=== PATIENT | female | born 1965 | race African-American/Black ===

== ENCOUNTER 2017-08-28 22:03 | Emergency (ER) | payer BC ==
[~2017-08-28] VITALS: Ht 172.7 cm; Wt 172.4 kg
[~2017-08-28 22:03] MED LIST: ACHD5005 PO; ALBU0.632 IH; AMLO2.5T PO; ASP81CT PO; ASPI-586 PO; BENZ100C18 PO; CITA10TA70 PO; CYAN500L PO; CYCL10TA9 PO; FAMO20TA3 PO; FAMO20TA5 PO; HCT25T PO; HYDR-2890 PO; HYDR-3454 PO; HYDR1TAB PO; MULT1CAP27 PO; NAPR-243 PO; NF-ESOM40C PO; OMEP20CA12 PO; ONDA4TAB8 SL; PANT40TA2 PO; PNT40TEC PO; PRD20T PO; SCR1T1 PO; SUCR1TAB PO; SUCR1TAB36 PO; TRM50T PO; [UNRECOGNIZED DRUG - OTHER]
--- OUTSIDE RECORDS SUMMARY | 2017-08-28 22:09 | XMS REPORT ---
Author Author AVRIL BAILON Organization [employer] Address Unknown Phone Unavailable Care Team Providers Care Fiber Design Engineer Name Role Phone AVRIL BAILON CP Unavailable Allergies No Known Allergies Problems Problem Type Condition Code Onset Dates Condition Status Problem Epigastric pain R10.13 Active Problem Elevated lipase R74.8 Active Problem Essential hypertension, hypertension with unspecified goal I10 Active Medications No Known Medications Results No Known Results Summary Purpose eClinicalWorks Submission
--- OUTSIDE RECORDS SUMMARY | 2017-08-28 22:10 | XMS REPORT ---
Author Author AVRIL BAILON [facility] Address [address] [place] [address] Care Team Providers Care Catering Chef Name Role Phone AVRIL BAILON Unavailable PROBLEMS Type Condition ICD9-CM Code [id number] Code Onset Dates Condition Status SNOMED Code Problem Essential hypertension I10 Active 18330209 Problem Morbid obesity, unspecified obesity type E66.01 Active 296701924 Problem Epigastric pain R10.13 Active 41708847 Problem Elevated lipase R74.8 Active 977965169 Problem Menopausal symptoms N95.1 Active 69809880 Problem Abdominal pain R10.9 Active 25849955 ALLERGIES Unknown Allergies SOCIAL HISTORY No smoking Hx information available PLAN OF CARE VITAL SIGNS MEDICATIONS Medication Instructions Dosage Frequency Start Date End Date Duration Status Levaquin 500 MG Orally Once a day 1 tablet 24h Nov, Nov, 10 day(s) Active RESULTS No Results PROCEDURES No Known procedures IMMUNIZATIONS No Known Immunizations
--- OUTSIDE RECORDS SUMMARY | 2017-08-28 22:10 | XMS REPORT ---
Author Author STEVEN PORTILLO Organization [employer] Address Unknown Phone Unavailable Care Team Providers Care Manufacturing Plant Controller Name Role Phone STEVEN PORTILLO CP Unavailable Allergies, Adverse Reactions, Alerts Substance Reaction Event Type Aleve Info Not Available Drug Allergy Advil Info Not Available Drug Allergy Ativan 0.5 Mg Info Not Available Non Drug Allergy Problems Problem Type Condition Code Onset Dates Condition Status Problem Epigastric pain R10.13 Active Problem Elevated lipase R74.8 Active Problem Essential hypertension, hypertension with unspecified goal I10 Active Assessment Elevated lipase R74.8 Active Assessment Essential hypertension, hypertension with unspecified goal I10 Active Assessment Epigastric pain R10.13 Active Medications Medication Code System Code Instructions Start Date End Date Status Dosage Lisinopril-Hydrochlorothiazide [facility] [address]-72 10-12.5 MG Orally Once a day March 11, 2016 1 tablet Pepcid [facility] [address]-02 20 MG Orally Once a day 1 tablet at bedtime Multivitamin [facility] 73265-[address] May 02, 2014 1 tablet by Oral route 1 time per day Aspir-81 [facility] [address]-18 81 MG Orally Once a day 1 tablet Procedures Procedure Coding System Code Date Office Visit, Est Pt., Level 4 CPT-4 38726 March 11, 2016 Vital Signs Date/Time: March 11, 2016 Temperature 97.4 F Weight 375 lbs Height 68 in BMI 57.01 Index Blood Pressure Diastolic 90 mmHg Blood Pressure Systolic 160 mmHg Cardiac Monitoring Heart Rate 78 bpm Results No Known Results Summary Purpose eClinicalWorks Submission
--- OUTSIDE RECORDS SUMMARY | 2017-08-28 22:10 | XMS REPORT ---
Author Author AVRIL BAILON [facility] Address [address] [place] [address] Care Team Providers Care Wire Coater Name Role Phone AVRIL BAILON Unavailable PROBLEMS Type Condition ICD9-CM Code [id number] Code Onset Dates Condition Status SNOMED Code Problem Abdominal pain R10.9 Active 01647301 Problem Epigastric pain R10.13 Active 97799204 Problem Elevated lipase R74.8 Active 777896862 Assessment Essential hypertension, hypertension with unspecified goal I10 08 Jul, 2016 Active 37196299 ALLERGIES No Known Allergies SOCIAL HISTORY No smoking Hx information available PLAN OF CARE VITAL SIGNS MEDICATIONS Medication Instructions Dosage Frequency Start Date End Date Duration Status Norvasc 2.5 MG Orally Once a day 1 tablet 24h Feb, Active RESULTS No Results PROCEDURES No Known procedures IMMUNIZATIONS No Known Immunizations
--- OUTSIDE RECORDS SUMMARY | 2017-08-28 22:10 | XMS REPORT ---
Author VIRGILIO Ash Organization [employer] Address Unknown Phone Unavailable Care Team Providers Care Lead Loader Name Role Phone VIRGILIO SALGADO CP Unavailable Allergies No Known Allergies Problems Problem Type Condition Code Onset Dates Condition Status Problem Essential hypertension, hypertension with unspecified goal I10 Active Problem Epigastric pain R10.13 Active Problem Abdominal pain R10.9 Active Problem Elevated lipase R74.8 Active Medications Medication Code System Code Instructions Start Date End Date Status Dosage Macrobid [facility] [address]-18 100 MG Orally every 12 hrs Jul 12, 2016Jun 1 capsule with food Results No Known Results Summary Purpose eClinicalWorks Submission
--- OUTSIDE RECORDS SUMMARY | 2017-08-28 22:10 | XMS REPORT ---
Author AVRIL Matthews Organization [employer] Address Unknown Phone Unavailable Care Team Providers Care Orchid Superintendent Name Role Phone AVRIL BAILON CP Unavailable Allergies No Known Allergies Problems Problem Type Condition Code Onset Dates Condition Status Problem Abdominal pain R10.9 Active Problem Essential hypertension, hypertension with unspecified goal I10 Active Problem Menopausal symptoms N95.1 Active Problem Epigastric pain R10.13 Active Problem Elevated lipase R74.8 Active Medications No Known Medications Results No Known Results Summary Purpose eClinicalWorks Submission
--- OUTSIDE RECORDS SUMMARY | 2017-08-28 22:10 | XMS REPORT ---
Author Author AVRIL BAILON Organization [employer] Address Unknown Phone Unavailable Care Team Providers Care Channeling Machine Operator Name Role Phone AVRIL BAILON CP Unavailable Allergies, Adverse Reactions, Alerts Substance Reaction Event Type Aleve Info Not Available Drug Allergy Advil Info Not Available Drug Allergy Ativan 0.5 Mg Info Not Available Non Drug Allergy Problems Problem Type Condition Code Onset Dates Condition Status Problem Essential hypertension, hypertension with unspecified goal I10 Active Problem Epigastric pain R10.13 Active Problem Abdominal pain R10.9 Active Assessment Essential hypertension, hypertension with unspecified goal I10 Active Assessment 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 Problem Elevated lipase R74.8 Active Assessment Abdominal pain R10.9 Active Medications Medication Code System Code Instructions Start Date End Date Status Dosage Omeprazole [facility] [address]-21 20 mg Orally twice a day March 26, 2016 1 capsules Multivitamin [facility] [address] May 02, 2014 1 tablet by Oral route 1 time per day Amoxicillin [facility] [address]-09 500 MG Orally every 12 hrs March 26, 2016 April 09, 2016 2 tablet Pepcid [facility] [address]-77 20 MG Orally Once a day 1 tablet at bedtime Norvasc [facility] [address]-93 2.5 MG Orally Once a day March 26, 2016 1 tablet Aspir-81 [facility] [address]-27 81 MG Orally Once a day 1 tablet Biaxin [facility] [address]-60 500 MG Orally every 12 hrs March 26, 2016March 1 tablet Procedures Procedure Coding System Code Date Office Visit, Est Pt., Level 3 CPT-4 51369 March 26, 2016 IMMUNOASSAY,INFECTIOUS AGENT CPT-4 41929 March 26, 2016 Vital Signs Date/Time: March 26, 2016 Temperature 97.3 F Weight 376.9 lbs Height 68 in BMI 57.30 Index Blood Pressure Diastolic 94 mmHg Blood Pressure Systolic 154 mmHg Cardiac Monitoring Heart Rate 60 bpm Results No Known Results Summary Purpose eClinicalWorks Submission
--- OUTSIDE RECORDS SUMMARY | 2017-08-28 22:10 | XMS REPORT ---
Author Author AVRIL BAILON Organization [employer] Address Unknown Phone Unavailable Care Team Providers Care Mat Inspector Name Role Phone AVRIL BAILON CP Unavailable Allergies No Known Allergies Problems Problem Type Condition Code Onset Dates Condition Status Problem Epigastric pain R10.13 Active Problem Elevated lipase R74.8 Active Problem Essential hypertension, hypertension with unspecified goal I10 Active Medications No Known Medications Results No Known Results Summary Purpose [employer]ClinicalWorks Submission
--- OUTSIDE RECORDS SUMMARY | 2017-08-28 22:10 | XMS REPORT ---
Author DICK Hodge Organization [employer] Address Unknown Phone Unavailable Care Team Providers Care Chain Builder Loom Control Name Role Phone DICK KENT CP Unavailable Allergies, Adverse Reactions, Alerts Substance Reaction Event Type Aleve Info Not Available Drug Allergy Advil Info Not Available Drug Allergy Ativan 0.5 Mg Info Not Available Non Drug Allergy Problems Problem Type Condition ICD-9 Code Onset Dates Condition Status Assessment Dizziness 780.4 Active Assessment Dysuria 788.1 Active Assessment Shoulder pain, right 719.41 Active Problem Unspecified gastritis and gastroduodenitis without mention of hemorrhage 535.50 Active Problem Sprain and strain of lateral collateral ligament of knee 844.0 Active Problem Esophageal reflux 530.81 Active Problem Wheezing 786.07 Active Problem Cough 786.2 Active Problem Abdominal pain, unspecified site 789.00 Active Problem Influenza with other respiratory manifestations 487.1 Active Medications Medication Code System Code Instructions Start Date End Date Status Dosage Bactrim DS [facility] [address]-47 800-160 MG Orally 2 times a day Aug 07, 2015 Aug 10, 2015 1 tablet Procedures Procedure Coding System Code Date Office Visit, Est Pt., Level 4 CPT-4 91196 Aug 07, 2015 ELECTROCARDIOGRAM, TRACING CPT-4 92809 Aug 07, 2015 URINALYSIS, AUTO, W/O SCOPE CPT-4 69726 Aug 07, 2015 Vital Signs Date/Time: Aug 07, 2015 Temperature 97.3 F Weight 375.4 lbs Height 68 in BMI 57.07 Index Blood Pressure Diastolic 90 mmHg Blood Pressure Systolic 144 mmHg Cardiac Monitoring Heart Rate 90 bpm Results Name Result Date Reference Range Unit Abnormality Flag UA W/CULTURE IF INDICATED (IN HOUSE) Summary Purpose eClinicalWorks Submission
--- OUTSIDE RECORDS SUMMARY | 2017-08-28 22:10 | XMS REPORT ---
Author Author AVRIL BAILON Organization [facility] Address [address] [place] [address] Care Team Providers Care Finance Director Name Role Phone AVRIL BAILON Unavailable PROBLEMS Type Condition ICD9-CM Code [id number] Code Onset Dates Condition Status SNOMED Code Problem Essential hypertension I10 Active 68563781 Problem Morbid obesity, unspecified obesity type E66.01 Active 694798503 Problem Epigastric pain R10.13 Active 59760340 Problem Elevated lipase R74.8 Active 587271532 Problem Menopausal symptoms N95.1 Active 67750260 Problem Abdominal pain R10.9 Active 15799856 ALLERGIES Unknown Allergies SOCIAL HISTORY No smoking Hx information available PLAN OF CARE VITAL SIGNS MEDICATIONS Medication Instructions Dosage Frequency Start Date End Date Duration Status Hydrochlorothiazide 25 MG Orally Once a day 1 tablet in the morning 24h Jul, 30 days Active RESULTS No Results PROCEDURES No Known procedures IMMUNIZATIONS No Known Immunizations
--- OUTSIDE RECORDS SUMMARY | 2017-08-28 22:10 | XMS REPORT ---
Author Author AVRIL BAILON Organization [employer] Address Unknown Phone Unavailable Care Team Providers Care Electrician Name Role Phone AVRIL BAILON CP Unavailable Allergies No Known Allergies Problems Problem Type Condition Code Onset Dates Condition Status Problem Epigastric pain R10.13 Active Problem Elevated lipase R74.8 Active Problem Essential hypertension, hypertension with unspecified goal I10 Active Medications No Known Medications Results No Known Results Summary Purpose eClinicalWorks Submission
--- OUTSIDE RECORDS SUMMARY | 2017-08-28 22:10 | XMS REPORT ---
Author Author AVRIL BAILON Organization [facility] Address [address] [place] [address] Care Team Providers Care Client Relationship Manager Name Role Phone AVRIL BAILON Unavailable PROBLEMS Type Condition ICD9-CM Code [id number] Code Onset Dates Condition Status SNOMED Code Problem Abdominal pain R10.9 Active 65332301 Problem Epigastric pain R10.13 Active 17545119 Assessment Screening, lipid Z13.220 Jul, Active 534829336 Assessment Morbid obesity, unspecified obesity type E66.01 Jul, Active 758106942 Problem Elevated lipase R74.8 Active 368366797 Assessment Family history of diabetes mellitus Z83.3 Jul, Active 937843787 ALLERGIES No Known Allergies SOCIAL HISTORY No smoking Hx information available PLAN OF CARE VITAL SIGNS MEDICATIONS No Known Medications RESULTS Name Result Date Reference Range CMP 2016-08-25 Glucose, Serum 86 65-99 BUN 10 6-24 Creatinine, Serum 0.81 0.57-1.00 eGFR If NonAfricn Am 85 >59 eGFR If Africn Am 98 >59 BUN/Creatinine Ratio 12 9-23 Sodium, Serum 141 134-144 Potassium, Serum 4.2 3.5-5.2 Chloride, Serum 103 97-108 Carbon Dioxide, Total 26 18-29 Calcium, Serum 9.1 8.7-10.2 Protein, Total, Serum 7.1 6.0-8.5 Albumin, Serum 3.9 3.5-5.5 Globulin, Total 3.2 1.5-4.5 A/G Ratio 1.2 1.1-2.5 Bilirubin, Total 0.5 0.0-1.2 Alkaline Phosphatase, S 83 39-117 AST (SGOT) 13 0-40 ALT (SGPT) 12 0-32 A1C (IN HOUSE) A1C IN HOUSE 5.8 4.3 - 5.6 % Previous A1c Lot 0620 Exp date INSULIN LEVEL 2016-08-25 Insulin 21.7 2.6-24.9 LIPID PANEL 2016-08-25 Cholesterol, Total 185 100-199 Triglycerides 67 0-149 HDL Cholesterol 63 >39 VLDL Cholesterol Pramod 13 5-40 LDL Cholesterol Calc 109 0-99 PROCEDURES Procedure Date Ordered Related Diagnosis Body Site ASSAY OF INSULIN Aug 25, 2016 LIPID PANEL Aug 25, 2016 GLYCATED HEMOGLOBIN TEST Aug 25, 2016 COMPREHEN METABOLIC PANEL Aug 25, 2016 VENIPUNCT, ROUTINE* Aug 25, 2016 IMMUNIZATIONS No Known Immunizations
--- OUTSIDE RECORDS SUMMARY | 2017-08-28 22:10 | XMS REPORT ---
Author Author AVRIL BAILON Organization [facility] Address [address] [place] [address] Care Team Providers Care Terrazzo Worker Helper Name Role Phone AVRIL BAILON Unavailable PROBLEMS Type Condition ICD9-CM Code [id number] Code Onset Dates Condition Status SNOMED Code Assessment Colon cancer screening Z12.11 Oct, Active 398902124 Assessment Essential hypertension I10 Oct, Active 35163900 Assessment Breast cancer screening Z12.39 Oct, Active 729316589 Problem Essential hypertension I10 Active 59786613 Problem Morbid obesity, unspecified obesity type E66.01 Active 451892216 Problem Epigastric pain R10.13 Active 68928626 Problem Elevated lipase R74.8 Active 166710006 Problem Menopausal symptoms N95.1 Active 60119045 Problem Abdominal pain R10.9 Active 56050706 ALLERGIES Substance Reaction Event Type Date Status Aleve Unknown Drug Allergy Oct, Active Advil Unknown Drug Allergy Oct, Active Ativan 0.5 Mg Unknown Non Drug Allergy Oct, Active SOCIAL HISTORY No smoking Hx information available PLAN OF CARE Activity Details Pending Test Mammogram, Bilateral Screening 4 Weeks,Reason: VITAL SIGNS Height 68 in 2016-10-29 Weight 369.4 lbs 2016-10-29 Heart Rate 72 bpm 2016-10-29 Respiratory Rate 20 2016-10-29 BMI 56.16 kg/m2 2016-10-29 Blood pressure systolic 119 mmHg 2016-10-29 Blood pressure diastolic 81 mmHg 2016-10-29 MEDICATIONS Medication Instructions Dosage Frequency Start Date End Date Duration Status Omeprazole 20 mg Orally twice a day 1 capsules 12h Feb, 30 day( s) Active Multivitamin 1 tablet by Oral route 1 time per day Apr, Active Norvasc 2.5 MG Orally Once a day 1 tablet 24h Feb, Active Aspir-81 81 MG Orally Once a day 1 tablet 24h Active Hydrochlorothiazide 25 MG Orally Once a day in the AM 1 tablet Jul, Active Celexa 20 mg Orally Once a day 1 tablet 24h Aug, 30 days Active Amlodipine Besylate 2.5 MG TAKE ONE TABLET BY MOUTH ONCE DAILY 90 Active RESULTS Name Result Date Reference Range Mammogram, Bilateral Screening 2016-11-12 PROCEDURES Procedure Date Ordered Related Diagnosis Body Site Office Visit, Est Pt., Level 3 Oct 29, 2016 IMMUNIZATIONS No Known Immunizations
--- OUTSIDE RECORDS SUMMARY | 2017-08-28 22:11 | XMS REPORT ---
Author Author AVRIL BAILON Organization [employer] Address Unknown Phone Unavailable Care Team Providers Care Dough Molder Hand Name Role Phone AVRIL BAILON CP Unavailable Allergies No Known Allergies Problems Problem Type Condition Code Onset Dates Condition Status Problem Epigastric pain R10.13 Active Problem Elevated lipase R74.8 Active Problem Essential hypertension, hypertension with unspecified goal I10 Active Medications No Known Medications Results No Known Results Summary Purpose eClinicalWorks Submission
--- OUTSIDE RECORDS SUMMARY | 2017-08-28 22:11 | XMS REPORT ---
Author AVRIL Matthews Organization [employer] Address Unknown Phone Unavailable Care Team Providers Care Awning Hanger Helper Name Role Phone AVRIL BAILON CP Unavailable Allergies No Known Allergies Problems Problem Type Condition Code Onset Dates Condition Status Problem Abdominal pain R10.9 Active Problem Essential hypertension, hypertension with unspecified goal I10 Active Problem Menopausal symptoms N95.1 Active Assessment Menopausal symptoms N95.1 Active Problem Epigastric pain R10.13 Active Problem Elevated lipase R74.8 Active Medications Medication Code System Code Instructions Start Date End Date Status Dosage Celexa [facility] [address]-31 20 mg Orally Once a day Aug 31, 2016 1 tablet Results No Known Results Summary Purpose eClinicalWorks Submission
--- OUTSIDE RECORDS SUMMARY | 2017-08-28 22:11 | XMS REPORT ---
Author Author AVRIL BAILON Organization [facility] Address [address] [place] [address] Care Team Providers Care Jewelry Sales Coordinator Name Role Phone AVRIL BAILON Unavailable PROBLEMS Type Condition ICD9-CM Code [id number] Code Onset Dates Condition Status SNOMED Code Problem Essential hypertension I10 Active 60315883 Problem Morbid obesity, unspecified obesity type E66.01 Active 996149607 Problem Epigastric pain R10.13 Active 90300221 Problem Elevated lipase R74.8 Active 845223998 Problem Menopausal symptoms N95.1 Active 95886833 Problem Abdominal pain R10.9 Active 04968098 ALLERGIES Substance Reaction Event Type Date Status Aleve Unknown Drug Allergy Nov, Active Advil Unknown Drug Allergy Nov, Active Ativan 0.5 Mg Unknown Non Drug Allergy Nov, Active SOCIAL HISTORY No smoking Hx information available PLAN OF CARE Activity Details Follow Up prn Reason: VITAL SIGNS Height 68 in 2016-12-16 Weight 368 lbs 2016-12-16 Temperature 98.0 degrees Fahrenheit 2016-12-16 Heart Rate 70 bpm 2016-12-16 Respiratory Rate 20 2016-12-16 BMI 55.95 kg/m2 2016-12-16 Blood pressure systolic 130 mmHg 2016-12-16 Blood pressure diastolic 80 mmHg 2016-12-16 MEDICATIONS Medication Instructions Dosage Frequency Start Date End Date Duration Status Aspir-81 81 MG Orally Once a day 1 tablet 24h Active Hydrochlorothiazide 25 MG Orally Once a day 1 tablet in the morning 24h Jul, 30 days Active Amlodipine Besylate 2.5 MG TAKE ONE TABLET BY MOUTH ONCE DAILY 90 Active Multivitamin 1 tablet by Oral route 1 time per day Apr, Active Omeprazole 20 mg Orally twice a day 1 capsules 12h Feb, 30 day( s) Active RESULTS No Results PROCEDURES Procedure Date Ordered Related Diagnosis Body Site SPECIMEN HANDLING Dec 16, 2016 Office Visit, Est Pt., Level 4 Dec 16, 2016 IMMUNIZATIONS No Known Immunizations
--- OUTSIDE RECORDS SUMMARY | 2017-08-28 22:11 | XMS REPORT ---
Author Author AVRIL BAILON Organization [employer] Address Unknown Phone Unavailable Care Team Providers Care Spoon Maker Name Role Phone AVRIL BAILON CP Unavailable Allergies No Known Allergies Problems Problem Type Condition Code Onset Dates Condition Status Problem Essential hypertension, hypertension with unspecified goal I10 Active Problem Epigastric pain R10.13 Active Problem Abdominal pain R10.9 Active Problem Elevated lipase R74.8 Active Medications No Known Medications Results No Known Results Summary Purpose eClinicalWorks Submission
--- OUTSIDE RECORDS SUMMARY | 2017-08-28 22:11 | XMS REPORT ---
Author Author VIRGILIO SALGADO Organization [employer] Address Unknown Phone Unavailable Care Team Providers Care Raw Hide Trimmer Name Role Phone VIRGILIO SALGADO CP Unavailable Allergies, Adverse Reactions, Alerts Substance Reaction Event Type Aleve Info Not Available Drug Allergy Advil Info Not Available Drug Allergy Ativan 0.5 Mg Info Not Available Non Drug Allergy Problems Problem Type Condition Code Onset Dates Condition Status Problem Essential hypertension, hypertension with unspecified goal I10 Active Problem Epigastric pain R10.13 Active Problem Abdominal pain R10.9 Active Assessment Acute cystitis without hematuria N30.00 Active Problem Elevated lipase R74.8 Active Assessment Dysuria R30.0 Active Medications Medication Code System Code Instructions Start Date End Date Status Dosage Carafate [facility] [address]-77 1 GM/10ML Orally 4 times a day March 30, 2016 10 ml on an empty stomach Norvasc [facility] [address]-79 2.5 MG Orally Once a day March 26, 2016 1 tablet Bactrim DS [facility] [address]-76 800-160 MG Orally Twice a day Jul 09, 2016 Jul 14, 2016 1 tablet Multivitamin [facility] [address]44 May 02, 2014 1 tablet by Oral route 1 time per day Aspir-81 [facility] [address]-92 81 MG Orally Once a day 1 tablet Omeprazole [facility] [address]-99 20 mg Orally twice a day March 26, 2016 1 capsules Procedures Procedure Coding System Code Date Office Visit, Est Pt., Level 3 CPT-4 82582 Jul 09, 2016 URINE CULTURE/COLONY COUNT CPT-4 09769 Jul 09, 2016 URINALYSIS, AUTO, W/O SCOPE CPT-4 84241 Jul 09, 2016 Vital Signs Date/Time: Jul 09, 2016 Cardiac Monitoring Heart Rate 86 bpm Weight 373 lbs Height 68 in BMI 56.71 Index Blood Pressure Diastolic 90 mmHg Blood Pressure Systolic 130 mmHg Results No Known Results Summary Purpose eClinicalWorks Submission
--- OUTSIDE RECORDS SUMMARY | 2017-08-28 22:11 | XMS REPORT ---
Author AVRIL Matthews Organization [employer] Address Unknown Phone Unavailable Care Team Providers Care Interchange Agent Name Role Phone AVRIL BAILON CP Unavailable Allergies, Adverse Reactions, Alerts Substance Reaction Event Type Aleve Info Not Available Drug Allergy Advil Info Not Available Drug Allergy Ativan 0.5 Mg Info Not Available Non Drug Allergy Problems Problem Type Condition Code Onset Dates Condition Status Assessment Screening, lipid Z13.220 Active Assessment Family history of diabetes mellitus Z83.3 Active Problem Essential hypertension, hypertension with unspecified goal I10 Active Problem Epigastric pain R10.13 Active Problem Abdominal pain R10.9 Active Assessment Sleep apnea, unspecified type G47.30 Active Assessment Morbid obesity, unspecified obesity type E66.01 Active Problem Elevated lipase R74.8 Active Assessment Essential hypertension I10 Active Medications Medication Code System Code Instructions Start Date End Date Status Dosage Multivitamin [facility][NOTE 3] [address] May 02, 2014 1 tablet by Oral route 1 time per day Omeprazole [facility][NOTE 3] [address]-34 20 mg Orally twice a day March 26, 2016 1 capsules Carafate [facility][NOTE 3] [address]-52 1 GM/10ML Orally 4 times a day March 30, 2016 10 ml on an empty stomach Norvasc [facility][NOTE 3] [address]-28 2.5 MG Orally Once a day March 26, 2016 1 tablet Hydrochlorothiazide [facility][NOTE 3] [address]-34 25 MG Orally Once a day in the AM Aug 24, 2016 1 tablet Aspir-81 [facility][NOTE 3] [address]-58 81 MG Orally Once a day 1 tablet Procedures Procedure Coding System Code Date Office Visit, Est Pt., Level 3 CPT-4 74411 Aug 24, 2016 Vital Signs Date/Time: Aug 24, 2016 Cardiac Monitoring Heart Rate 84 bpm Weight 374 lbs Height 68 in BMI 56.86 Index Blood Pressure Diastolic 102 mmHg Blood Pressure Systolic 150 mmHg Results No Known Results Summary Purpose eClinicalWorks Submission
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
[2017-08-28] MEDS ORDERED: OMEP20CA12 (22:45)
[2017-08-28] MEDS ORDERED: FURO20TA4 (22:45)
--- NOTE | 2017-08-28 22:52 | ED Cough/URI ---
General Chief Complaint: Cough/Cold/Flu Symptoms Stated Complaint: DIZZY,TASTED BLOOD DOWN THROAT WHEN BLOWING NOSE Nursing Triage Note: PT REPORTS RESPIRATORY CONGESTION, COUGH OF 1 WEEK NOT IMPROVING. PT HAS HX HTN AND DOES NOT USE DECONGESTIONS. PT DID NOT TAKE HER BP MED TODAY. History of Present Illness Time seen by provider: 22:40 Initial Comments Patient complains of cough and postnasal drainage. He started Claritin today. She is on blood pressure medicine, she did not take it this morning as her blood pressure was 120/60 She denies history of allergies. Timing/Duration: week Severity/Quality: dry cough Associated Symptoms: nasal congestion, nasal drainage Allergies and Home Medications Allergies Coded Allergies: ibuprofen (Verified Allergy, Severe, 05/01/16) Home Medications Amlodipine Besylate 2.5 Mg Tablet, 2.5 MG PO DAILY, (Reported) Aspirin 81 Mg Tablet.dr, 81 MG PO DAILY, (Reported) Furosemide 20 Mg Tablet, (Reported) Omeprazole 20 Mg Capsule., (Reported) Constitutional: no symptoms reported, see HPI EENTM: nose congestion Respiratory: see HPI, cough Past Hszhtkx-Oijarm-Fjgsac Hx Patient Social History Alcohol Use: Denies Use Recreational Drug Use: No Smoking Status: Former Smoker Type Used: Cigarettes Former Smoker, Quit: Aug 08, 2007 2nd Hand Smoke Exposure: No Recent Foreign Travel: No Contact w/Someone Who Travel: No Recent Infectious Disease Expo: No Recent Hopitalizations: No Immunizations Up To Date Tetanus Booster (TDap): More than 5yrs Date of Influenza Vaccine: Aug 29, 2013 Surgeries Surgeries: Gallbladder, Tubal Ligation Respiratory Respiratory Disorders: Pneumonia Cardiovascular Cardiac Disorders: Hypertension 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 System Hx 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 Disorders: No Sexually Transmitted Disease: No [employer] History: Tubal Ligation Gastrointestinal Gastrointestinal Disorders: Gastroesophageal Reflux, Hiatal Hernia, Ulcer Musculoskeletal Musculoskeletal Disorders: Chronic Back Pain Family Medical History Significant Family History: Diabetes, Hypertension Physical Exam Vital Signs Vital Sign - Last 12Hours 08/28/ 22:33 Temp 98.1 Pulse 71 Resp 20 B/P (MAP) 154/104 Pulse Ox 98 O2 Delivery Room Air Capillary Refill : Less Than 3 Seconds General Appearance: WD/WN, no apparent distress Eyes: Bilateral Eye Normal Inspection, Bilateral Eye PERRL, Bilateral Eye EOMI HEENT: PERRL/EOMI, normal ENT inspection, TMs normal, pharynx normal, other ( clear postnasal drainage noted) Neck: non-tender, full range of motion, supple, normal inspection, No lymphadenopathy (R), No lymphadenopathy (L) Respiratory: chest non-tender, lungs clear, normal breath sounds Cardiovascular: normal peripheral pulses, regular rate, rhythm, no murmur Gastrointestinal: normal bowel sounds, non tender, soft Neurologic/Psychiatric: no motor/sensory deficits, alert, normal mood/affect, oriented x 3 Skin: normal color, warm/dry Lymphatic: no adenopathy Progress/Results/Core Measures Results/Orders My Orders Orders - BRAYAN STEPHENS Dexamethasone Pf Injection (Decadron Pf (08/28/17 23:00) Dexamethasone Injection (Decadron Inject (08/28/17 22:55) Medications Given in ED Current Medications Medications Dose Ordered Sig/Ken Route Start Time Stop Time Status Last Admin Dose Admin Dexamethasone Sodium Phosphate 10 mg ONCE ONCE IV 08/28/17 23:00 08/28/17 23:01 DC 08/28/17 23:03 10 MG Vital Signs/I&O Vital Sign - Last 12Hours 08/28/17 08/28/17 22:33 22:33 Temp 98.1 Pulse 71 Resp 20 B/P (MAP) 154/104 Pulse Ox 98 O2 Delivery Room Air Room Air Blood Pressure Mean: 121 Departure Impression Impression: Primary Impression: Allergic rhinitis Qualified Codes: J30.2 - Other seasonal allergic rhinitis Disposition: 01 HOME, SELF-CARE Condition: Stable Departure-Patient Inst. Decision time for Depature: 22:40 Referrals: AVRIL BAILON (PCP/Family) Primary Care Physician Patient Instructions: Cough, Runny Nose, and the Common Cold (DC), Seasonal Allergies (DC) Add. Discharge Instructions: Take blood pressure medicine as prescribed. Benadryl 25-50 milligrams before bedtime. Increase water intake. Vsaf-ocl-fgvuwht Zyrtec or Claritin daily for allergies. Pbea-lur-cetnoyc allergy nasal spray, Flonase or Nasonex as directed on label. Anthony med sinus rinse or Sara pot use 3-4 times daily Follow-up with Avril Bailon APRN if symptoms are not improving in 2-4 days. Tylenol 650 mg every 6 hours as needed for pain or discomfort. Return to emergency department for difficulty breathing, fever greater than 101 , or new problems. All discharge instructions reviewed with patient and/or family. Voiced understanding. BRAYAN STEPHENS Aug 28, 2017 22:52
[2017-08-28 23:03] VITALS: BP 154/104
[2017-08-28] MEDS: DEXAMETHASONE 10 MG/ML (DECADRON) 1 ML VIAL ONE (23:03)
[2017-08-28] MEDS: DEXAMETHASONE PF 10 MG/ML (DECADRON) VIAL IV ONE (23:03)
[2017-08-29] MEDS: DEXAMETHASONE 10 MG/ML (DECADRON) 1 ML VIAL ONE (04:32)
[2017-08-29] MEDS: DEXAMETHASONE PF 10 MG/ML (DECADRON) VIAL IV ONE (04:34)
== END 2017-08-28 23:03 | disposition home or self-care (01) ==
LOC: EDUNIT# 22:03 → ER 22:05
DX: J30.9 Allergic rhinitis, unspecified (principal); K21.9 Gastro-esophageal reflux disease without esophagitis; I10 Essential (primary) hypertension; Z98.51 Tubal ligation status; Z87.01 Personal history of pneumonia (recurrent); Z87.891 Personal history of nicotine dependence; Z79.82 Long term (current) use of aspirin
CPT/HCPCS: 96372; 99284

== ENCOUNTER → 2018-08-25 | Outpatient (REF) ==
[~2018-08-25] MED LIST changes: -AMLO2.5T PO; +AMLO2.5T3 PO; +FURO20TA4; +FURO40TA4 PO; +MULT-1029 PO
--- NOTE | 2018-08-25 15:41 | Diagnostic Imaging Report ---
EXAMINATION: Right shoulder at 12:07 p.m. INDICATION: Injury, shoulder pain. FINDINGS: Three views were obtained. There are no prior shoulder exams available for comparison. There is no fracture, dislocation, or acute bony abnormality evident. There is moderate degenerative disease involving the glenohumeral and acromioclavicular joints. The soft tissues are unremarkable. IMPRESSION: 1. There is no evidence for an acute bony abnormality. 2. If clinical concern regarding an injury to the rotator cuff or labrum exists, then MRI will be recommended for further study. Dictated by: Dictated on workstation # [id number]
== END | disposition home or self-care (01) ==
LOC: RAD 11:30
PROVIDERS: ATTEND Nurse Practitioner Family
CPT/HCPCS: 73030

== ENCOUNTER 2018-10-16 02:14 | Emergency (ER) | payer BC ==
[~2018-10-16] VITALS: Ht 172.7 cm; Wt 158.8 kg
--- OUTSIDE RECORDS SUMMARY | 2018-10-16 02:23 | XMS REPORT ---
Author Author AVRIL BAILON Organization [facility] Address [address] [place] [address] Care Team Providers Care Planograph Operator Name Role Phone AVRIL BAILON Unavailable PROBLEMS Type Condition ICD9-CM Code [id number]-OU Code Onset Dates Condition Status SNOMED Code Problem Epigastric pain R10.13 Active 19233839 Problem Menopausal symptoms N95.1 Active 03846329 Problem Abdominal pain R10.9 Active 18232044 Problem Elevated lipase R74.8 Active 891018082 Problem Gastroesophageal reflux disease without esophagitis K21.9 Active 648228771 Problem Localized edema R60.0 Active 749046366 Problem Morbid obesity, unspecified obesity type E66.01 Active 684296203 Problem Essential hypertension I10 Active 03503660 Problem Acute seasonal allergic rhinitis due to pollen J30.1 Active 20114435 Problem Obesity due to excess calories, unspecified classification, unspecified whether serious comorbidity present E66.09 Active 997529248 ALLERGIES Substance Reaction Event Type Date Status Aleve Unknown Drug Allergy Jun, Active Advil Unknown Drug Allergy Jun, Active Ativan 0.5 Mg Unknown Non Drug Allergy Jun, Active ENCOUNTERS Encounter Location Date Diagnosis [facility] [id number] [place] [address] Jun, [facility] [id number] [place] [address] Jun, [facility] [id number] [place] [address] Jun, [facility] [id number] [place] [address] Jun, Essential hypertension I10 ; Morbid obesity, unspecified obesity type E66.01 ; Gastroesophageal reflux disease without esophagitis K21.9 and BMI 50.0-59.9, adult Z68.43 [place] [id number] [place] [address] May, Essential hypertension I10 and Edema R60.9 [place] [id number] [place] [id number] March, [place] [address] [address] Jan, Yeast vaginitis B37.3 [place] [address] [address] 15 Dec, 2017 Acute non-recurrent maxillary sinusitis J01.00 and Bronchitis J40 [address] [address] 12 Dec, 2017 Viral illness B34.9 and BMI 50.0-59.9, adult Z68.43 [place] [address] [address] Nov, Essential hypertension I10 ; Localized edema R60.0 and Epigastric pain R10.13 [place] [address] [address] Nov, [place] [id number] [place] [address]- [address]37 Oct, Hypokalemia E87.6 [place] [address] [address] Oct, Hypokalemia E87.6 [place] [id number] [place] [address]34- [address]69 Aug, Obesity due to excess calories, unspecified classification, unspecified whether serious comorbidity present E66.09 ; Acute seasonal allergic rhinitis due to pollen J30.1 and Localized edema R60.0 [place] [id number] [place] [address]29- 4[address] Apr, Edema R60.9 [place] [id number] [place] [address]- [address] March, Edema R60.9 and Essential hypertension I10 [place] [address] [address]- [address] Jan, Bronchitis J40 [place] [id number] [place] [address] 80[address]- 67[address] Nov, Routine gynecological examination V72.31 and Cervical cancer screening Z12.4 [place] [id number] [place] [address]24- [address] Nov, Acute upper respiratory infection, unspecified J06.9 and Other viral agents as the cause of diseases classified elsewhere B97.89 [place] [address] [address] Oct, Essential hypertension I10 [address] [address] Oct, Essential hypertension I10 ; Morbid obesity, unspecified obesity type E66.01 ; Breast cancer screening Z12.39 and Colon cancer screening Z12.11 [place] [id number] [place] [address] 36995- 57[address] 17 Aug, 2016 [place] [id number] [place] [address] 57[address]- [address] 29 Jul, 2016 Menopausal symptoms N95.1 [place] [id number] [place] [address] 30869- 0723 27 Jul, 2016 Family history of diabetes mellitus Z83.3 ; Screening, lipid Z13.220 and Morbid obesity, unspecified obesity type E66.01 [place] [id number] [place] [address] 6[address]10- [address] 26 Jul, 2016 Essential hypertension I10 ; Sleep apnea, unspecified type G47.30 ; Morbid obesity, unspecified obesity type E66.01 ; Screening, lipid Z13.220 and Family history of diabetes mellitus Z83.3 [place] [id number] [place] [address] 9[address]61- [address]33 08 Jul, 2016 Essential hypertension, hypertension with unspecified goal I10 [facility] [place] [id number] [place] [address] 14 Jun, 2016 [facility] [place] [id number] [place] [address]33 -[address] 11 Jun, 2016 Dysuria R30.0 and Acute cystitis without hematuria N30.00 [place] [id number] [place] [address] 11840- 0880 Jun, [place] [id number] [place] [address] 16023- [address] March, Abdominal pain R10.9 [place] [id number] [place] [address]20- 6230 28 Feb, 2016 Abdominal pain R10.9 ; Essential hypertension, hypertension with unspecified goal I10 and Lipoma D17.9 [facility] [place] [id number] [place] [address] Feb, [place] [id number] [place] [address] 39140- 5281 Feb, [place] [id number] [place] [address] 82859- 8879 Feb, [place] [id number] [place] [address] 02099- 5887 Feb, [place] [id number] [place] [address] 40177- 2152 13 Feb, 2016 Essential hypertension, hypertension with unspecified goal I10 ; Epigastric pain R10.13 and Elevated lipase R74.8 [place] [id number] [place] [address] 90781- 0943 09 Jul, 2015 Dysuria 788.1 ; Shoulder pain, right 719.41 and Dizziness 780.4 [place] [id number] [place] [address] 68888- 5512 14 Feb, 2015 [facility] [place] [facility] [address] [id number] [place] [address] 13 Feb, 2015 [facility] [place] [facility] [address] [id number] [place] [address] Nov, [facility] [place] [facility] [address] [id number] [place] [address] Nov, [facility] [place] [facility] [address] [id number] [place] [address]- 267[address] Jul, [facility] [address] [id number] [place] [address]- 6[address] Jul, [facility] [place] [facility] [address] [id number] [place] [address]- [address] May, [facility] [address] [id number] [place] [address]- [address] May, [facility] [address] [id number] [place] [address]- 239[address] Apr, [facility] [place] [facility] [address] [id number] [place] [address]- 9991 Apr, [facility] [place] [facility] [address] [id number] [place] [address]- 1627 Feb, [facility] [place] [facility] [address] [id number] [place] [address]- [address] Feb, [facility] [place] [facility] [address] [id number] [place] [address]- 9867 Nov, [facility] [place] [facility] [address] [id number] [place] [address]- 8704 Oct, [facility] [place] [facility] [address] [id number] [place] [address]- 0072 Oct, [facility] [place] [facility] [address] [id number] [place] [address]- [address] Oct, [facility] [place] [facility] [address] [id number] [place] [address] Oct, [facility] [address] [id number] [place] [address] Oct, [facility] [place] [facility] [address] [id number] [place] [address]- 4311 Oct, [facility] [place] [facility] [address] [id number] [place] [address]- 5066 Sep, [facility] [place] [facility] [address] [id number] [place] [address]- [address] Sep, [facility] [place] [facility] [address] [id number] [place] [address] Sep, [facility] [place] [facility] [address] [id number] [place] [address]- 0734 Sep, [facility] [place] [facility] [address] [id number] [place] [address]- 7322 Sep, [facility] [place] [facility] [address] [id number] [place] [address]- 3331 Feb, [facility] [place] [facility] [address] [id number] [place] [address]- 0540 Oct, [facility] [place] [facility] [address] [id number] [place] [address]- 0450 Oct, [facility] [place] [facility] [address] [id number] [place] [address]- [address] Aug, [facility] [place] [facility] [address] [id number] [place] [address]- 94[address] May, [facility] [place] [facility] [address] [id number] [place] [address]- 9945 March, [facility] [place] [facility] [address] [id number] [place] [address]- 4951 March, [facility] [place] [facility] [address] [id number] [place] [address]- 2795 Dec, [facility] [place] [facility] [address] [facility] [id number] [place] [address]- [address] Apr, [facility] [address] [facility] [id number] [place] [address]- [address] Dec, IMMUNIZATIONS No Known Immunizations SOCIAL HISTORY Never Assessed REASON FOR VISIT VC f/u-MATHEW steiner PLAN OF CARE Activity Details Follow Up prn Reason: VITAL SIGNS Height 68 in 2018-07-11 Weight 380.7 lbs 2018-07-11 Temperature 97.8 degrees Fahrenheit 2018-07-11 Heart Rate 91 bpm 2018-07-11 Respiratory Rate 20 2018-07-11 BMI 57.88 kg/m2 2018-07-11 Blood pressure systolic 126 mmHg 2018-07-11 Blood pressure diastolic 76 mmHg 2018-07-11 MEDICATIONS Medication Instructions Dosage Frequency Start Date End Date Duration Status Lasix 20 MG Orally Once a day 1 tablet 24h Active Albuterol Sulfate HFA 108 (90 Base) MCG/ACT Inhalation every 6 hrs 2 puffs 6h Dec, Not-Taking Victoza 18 MG/3ML Subcutaneous 0.6mg daily X 7 then 1.2mg daily X7 as directed Jun, Active Omeprazole 20 mg Orally 2 times a day 1 capsules 12h 90 days Active Aspir-81 81 MG Orally Once a day 1 tablet 24h Active Multivitamin 1 tablet by Oral route 1 time per day Apr, Active RESULTS No Results PROCEDURES No Known procedures INSTRUCTIONS MEDICATIONS ADMINISTERED No Known Medications MEDICAL (GENERAL) HISTORY Type Description Date Medical History Hypertension Medical History Heartburn Surgical History gallbladder Surgical History tubal ligation Surgical History Heart Cath Surgical History EGD Surgical History cyst removal from forehead Hospitalization History Surgery(s) only Hospitalization History ER [facility] for abdominal pain 03/14 Hospitalization History hypertention 07/05/2018
--- OUTSIDE RECORDS SUMMARY | 2018-10-16 02:24 | XMS REPORT ---
Author Author AVRIL BAILON Organization [facility] Address [address] [place] [address] Care Team Providers Care Hooking Machine Operator Name Role Phone AVRIL BAILON Unavailable PROBLEMS Type Condition ICD9-CM Code BOB32-KT Code Onset Dates Condition Status SNOMED Code Problem Epigastric pain R10.13 Active 89254406 Problem Menopausal symptoms N95.1 Active 76123308 Problem Abdominal pain R10.9 Active 67910866 Problem Elevated lipase R74.8 Active 633297989 Problem Gastroesophageal reflux disease without esophagitis K21.9 Active 268654676 Problem Localized edema R60.0 Active 345658578 Problem Morbid obesity, unspecified obesity type E66.01 Active 045187289 Problem Essential hypertension I10 Active 47351256 Problem Acute seasonal allergic rhinitis due to pollen J30.1 Active 38872803 Problem Obesity due to excess calories, unspecified classification, unspecified whether serious comorbidity present E66.09 Active 374335888 ALLERGIES No Information ENCOUNTERS Encounter Location Date Diagnosis [place] [id number] [place] [address] 96607- 6269 Jun, [place] [id number] [place] [address] 02133- 8155 Jun, [place] [id number] [place] [address] 47547- 5600 Jun, [place] [id number] [place] [address] 65730- 8547 Jun, Essential hypertension I10 ; Morbid obesity, unspecified obesity type E66.01 ; Gastroesophageal reflux disease without esophagitis K21.9 and BMI 50.0-59.9, adult Z68.43 [place] [id number] [place] [address] 37703- 8326 May, Essential hypertension I10 and Edema R60.9 [place] [id number] [place] [address] 43489- 4547 March, [place] [address] 28959- 5491 Jan, Yeast vaginitis B37.[address] 82320- 6548 15 Dec, 2017 Acute non-recurrent maxillary sinusitis J01.00 and Bronchitis J40 [address] 51918- 2021 Dec, Viral illness B34.9 and BMI 50.0-59.9, adult Z68.[address] 21830- 6999 Nov, Essential hypertension I10 ; Localized edema R60.0 and Epigastric pain R10.13 [place] [address] 50199- 6818 Nov, [address] 52023- 4493 Oct, Hypokalemia E87.[address] 06581- 0670 Oct, Hypokalemia E87.[address] 42119- 3891 Aug, Obesity due to excess calories, unspecified classification, unspecified whether serious comorbidity present E66.09 ; Acute seasonal allergic rhinitis due to pollen J30.1 and Localized edema R60.[address] 50694- 6213 Apr, Edema R60.9 [place] [address] 71781- 6111 March, Edema R60.9 and Essential hypertension I10 [id number] [place] [address] 15202- 0427 Jan, Bronchitis J40 [place] [id number] [place] [address] 08401- 1047 18 Nov, 2016 Routine gynecological examination V72.31 and Cervical cancer screening Z12.4 [place] [id number] [place] [address] 12804- 5035 03 Nov, 2016 Acute upper respiratory infection, unspecified J06.9 and Other viral agents as the cause of diseases classified elsewhere B97.89 [place] [id number] [place] [address] 35474- 2845 28 Oct, 2016 Essential hypertension I10 [place] [id number] [place] [address] 25199- 3766 Oct, Essential hypertension I10 ; Morbid obesity, unspecified obesity type E66.01 ; Breast cancer screening Z12.39 and Colon cancer screening Z12.11 [place] [id number] [place] [address] 44981- 8472 17 Aug, 2016 [place] [id number] [place] [address] 63209- 3301 29 Jul, 2016 Menopausal symptoms N95.1 [place] [id number] [place] [address] 98049- 3608 27 Jul, 2016 Family history of diabetes mellitus Z83.3 ; Screening, lipid Z13.220 and Morbid obesity, unspecified obesity type E66.01 [place] [id number] [place] [address] 92556- 9686 26 Jul, 2016 Essential hypertension I10 ; Sleep apnea, unspecified type G47.30 ; Morbid obesity, unspecified obesity type E66.01 ; Screening, lipid Z13.220 and Family history of diabetes mellitus Z83.3 [place] [id number] [place] [address] 52619- 1737 08 Jul, 2016 Essential hypertension, hypertension with unspecified goal I10 [facility] WALK IN [facility] [id number] [place] [address] 18847 -6925 14 Jun, 2016 [facility] [id number] [place] [address] 82065 -8623 Jun, Dysuria R30.0 and Acute cystitis without hematuria N30.00 [facility] [id number] [place] [address] 37951- 5537 Jun, [facility] [address] 58647- 7624 March, Abdominal pain R10.9 [facility] [id number] [place] [address] 51946- 8256 Feb, Abdominal pain R10.9 ; Essential hypertension, hypertension with unspecified goal I10 and Lipoma D17.9 [facility] WALK IN [facility] [id number] [place] [address] 44018 -1817 Feb, [facility] [id number] [place] [address] 64475- 0486 Feb, [facility] [id number] [place] [address] 64885- 3991 Feb, [place] [id number] [place] [address] 37468- 6963 Feb, [facility] [id number] [place] [address] 22940- 7702 13 Feb, 2016 Essential hypertension, hypertension with unspecified goal I10 ; Epigastric pain R10.13 and Elevated lipase R74.8 [facility] [id number] [place] [address] 37553- 1506 09 Jul, 2015 Dysuria 788.1 ; Shoulder pain, right 719.41 and Dizziness 780.4 [facility] [id number] [place] [address] 84591- 4353 14 Feb, 2015 [facility] [id number] [place] [address] 07891- 3834 13 Feb, 2015 [facility] [address] [facility] [id number] [place] [address]- 9054 Nov, [facility] [address] [id number] [place] [address]- 8642 Nov, [facility] [place] [facility] [address] [id number] [place] [address]- 2490 Jul, [facility] [place] [facility] [address] [id number] [place] [address]- 8608 Jul, [facility] [place] [facility] [address] [id number] [place] [address]- 6624 May, [facility] [place] [facility] [address] [id number] [place] [address]- 1095 May, [facility] [place] [facility] [address] [id number] [place] [address]- 6016 Apr, [facility] [place] [facility] [address] [id number] [place] [address]- 8467 Apr, [facility] [address] [id number] [place] [address]- 0489 Feb, [facility] [place] [facility] [address] [id number] [place] [address]- 3396 Feb, [facility] [address] [id number] [place] [address]- 1850 Nov, [facility] [place] [facility] [address] [id number] [place] [address]- 4942 Oct, [facility] [place] [facility] [address] [id number] [place] [address]- 3659 Oct, [facility] [place] [facility] [address] [id number] [place] [address]- 7306 Oct, [facility] [place] [facility] [address] [id number] [place] [address]- 2546 Oct, [facility] [place] [facility] [address] [id number] [place] [address]- 6276 Oct, [facility] [address] [id number] [place] [address]- 0409 Oct, [facility] [place] [facility] [address] [id number] [place] [address]- 7595 Sep, [facility] [place] [facility] [address] [id number] [place] [address]- 4790 Sep, [facility] [place] [facility] [address] [id number] [place] [address]- 0311 Sep, [facility] [place] [facility] [address] [id number] [place] [address]- 9492 Sep, [facility] [place] [facility] [address] [id number] [place] [address]- 8230 Sep, [facility] [place] [facility] [address] [id number] [place] [address]- 1837 Feb, [facility] [place] [facility] [address] [id number] [place] [address]- 5638 Oct, [facility] [place] [facility] [address] [id number] [place] [address]- 4053 Oct, [facility] [place] [facility] [address] [facility] [id number], [place] [address]- 7838 Aug, [facility] [place] [facility] [address] [id number], [place] [address]- 0186 May, [facility] [place] [facility] [address] [id number], [place] [address]- 6158 March, [facility] [place] [facility] [address] [id number] [place] [address]- 2546 March, [facility] [place] [facility] [address] [id number], [place] [address]- 1766 Dec, [facility] [place] [facility] [address] [id number] [place] [address]- 2546 Apr, [facility] [place] [facility] [address] [facility] [id number] [place] [address] 6940 10 Dec, 2010 IMMUNIZATIONS No Known Immunizations SOCIAL HISTORY Never Assessed REASON FOR VISIT Requests return call PLAN OF CARE VITAL SIGNS MEDICATIONS Unknown Medications RESULTS No Results PROCEDURES No Known procedures [...]
--- OUTSIDE RECORDS SUMMARY | 2018-10-16 02:24 | XMS REPORT ---
Author Author AVRIL BAILON Organization [facility] Address [address] [place] [address] Care Team Providers Care B2B Sales Executive Name Role Phone AVRIL BAILON Unavailable PROBLEMS Type Condition ICD9-CM Code ZOA76-IB Code Onset Dates Condition Status SNOMED Code Problem Epigastric pain R10.13 Active 63174014 Problem Menopausal symptoms N95.1 Active 56471594 Problem Abdominal pain R10.9 Active 92144390 Problem Elevated lipase R74.8 Active 362931440 Problem Gastroesophageal reflux disease without esophagitis K21.9 Active 774442776 Problem Localized edema R60.0 Active 720406192 Problem Morbid obesity, unspecified obesity type E66.01 Active 538023100 Problem Essential hypertension I10 Active 22222443 Problem Acute seasonal allergic rhinitis due to pollen J30.1 Active 25697815 Problem Obesity due to excess calories, unspecified classification, unspecified whether serious comorbidity present E66.09 Active 312101034 ALLERGIES No Information ENCOUNTERS Encounter Location Date Diagnosis [place] [id number] [place] [address] 57378- 3426 Jun, [place] [id number] [place] [address] 68174- 3578 Jun, [place] [id number] [place] [address] 78785- 8896 Jun, [place] [id number] [place] [address] 30633- 7652 Jun, Essential hypertension I10 ; Morbid obesity, unspecified obesity type E66.01 ; Gastroesophageal reflux disease without esophagitis K21.9 and BMI 50.0-59.9, adult Z68.43 [place] [address] [id number] [place] [address] 91805- 5644 May, Essential hypertension I10 and Edema R60.9 [place] [id number] [place] [address] 06332- 8690 March, [place] [address] 24001- 8097 Jan, Yeast vaginitis B37.[address] 27193- 5497 15 Dec, 2017 Acute non-recurrent maxillary sinusitis J01.00 and Bronchitis J40 [address] 58552- 5869 Dec, Viral illness B34.9 and BMI 50.0-59.9, adult Z68.[address] 34909- 2780 Nov, Essential hypertension I10 ; Localized edema R60.0 and Epigastric pain R10.13 [place] [address] 74312- 3155 Nov, [address] 88777- 6600 Oct, Hypokalemia E87.[address] 92469- 5327 Oct, Hypokalemia E87.[address] 58859- 1676 Aug, Obesity due to excess calories, unspecified classification, unspecified whether serious comorbidity present E66.09 ; Acute seasonal allergic rhinitis due to pollen J30.1 and Localized edema R60.[address] 02098- 6068 Apr, Edema R60.9 [place] [address] 19289- 8886 March, Edema R60.9 and Essential hypertension I10 [id number] [place] [address] 66761- 3699 Jan, Bronchitis J40 [place] [id number] [place] [address] 40838- 3340 18 Nov, 2016 Routine gynecological examination V72.31 and Cervical cancer screening Z12.4 [place] [id number] [place] [address] 96513- 4281 03 Nov, 2016 Acute upper respiratory infection, unspecified J06.9 and Other viral agents as the cause of diseases classified elsewhere B97.89 [place] [id number] [place] [address] 40512- 0286 28 Oct, 2016 Essential hypertension I10 [place] [id number] [place] [address] 01870- 8294 Oct, Essential hypertension I10 ; Morbid obesity, unspecified obesity type E66.01 ; Breast cancer screening Z12.39 and Colon cancer screening Z12.11 [place] [id number] [place] [address] 08990- 8988 17 Aug, 2016 [place] [id number] [place] [address] 62075- 8648 29 Jul, 2016 Menopausal symptoms N95.1 [place] [id number] [place] [address] 95410- 2144 27 Jul, 2016 Family history of diabetes mellitus Z83.3 ; Screening, lipid Z13.220 and Morbid obesity, unspecified obesity type E66.01 [place] [id number] [place] [address] 30041- 2243 26 Jul, 2016 Essential hypertension I10 ; Sleep apnea, unspecified type G47.30 ; Morbid obesity, unspecified obesity type E66.01 ; Screening, lipid Z13.220 and Family history of diabetes mellitus Z83.3 [place] [id number] [place] [address] 13447- 8036 08 Jul, 2016 Essential hypertension, hypertension with unspecified goal I10 [facility] WALK IN [facility] [id number] [place] [address] 25622 -2376 14 Jun, 2016 [facility] [id number] [place] [address] 21547 -0573 Jun, Dysuria R30.0 and Acute cystitis without hematuria N30.00 [facility] [id number] [place] [address] 42860- 5861 Jun, [facility] [address] 26198- 9739 March, Abdominal pain R10.9 [facility] [id number] [place] [address] 06385- 3322 Feb, Abdominal pain R10.9 ; Essential hypertension, hypertension with unspecified goal I10 and Lipoma D17.9 [facility] WALK IN [facility] [id number] [place] [address] 62190 -6027 Feb, [facility] [id number] [place] [address] 62514- 3273 Feb, [facility] [id number] [place] [address] 25456- 3707 Feb, [place] [id number] [place] [address] 68242- 3659 Feb, [facility] [id number] [place] [address] 68722- 6685 13 Feb, 2016 Essential hypertension, hypertension with unspecified goal I10 ; Epigastric pain R10.13 and Elevated lipase R74.8 [facility] [id number] [place] [address] 67967- 8368 09 Jul, 2015 Dysuria 788.1 ; Shoulder pain, right 719.41 and Dizziness 780.4 [facility] [id number] [place] [address] 54274- 7354 14 Feb, 2015 [facility] [id number] [place] [address] 68366- 2500 13 Feb, 2015 [facility] [address] [facility] [id number] [place] [address]- 4914 Nov, [facility] [address] [id number] [place] [address]- 5183 Nov, [facility] [place] [facility] [address] [id number] [place] [address]- 1599 Jul, [facility] [place] [facility] [address] [id number] [place] [address]- 9165 Jul, [facility] [place] [facility] [address] [id number] [place] [address]- 4470 May, [facility] [place] [facility] [address] [id number] [place] [address]- 0954 May, [facility] [place] [facility] [address] [id number] [place] [address]- 3346 Apr, [facility] [place] [facility] [address] [id number] [place] [address]- 3404 Apr, [facility] [address] [id number] [place] [address]- 9306 Feb, [facility] [place] [facility] [address] [id number] [place] [address]- 5528 Feb, [facility] [address] [id number] [place] [address]- 1157 Nov, [facility] [place] [facility] [address] [id number] [place] [address]- 7414 Oct, [facility] [place] [facility] [address] [id number] [place] [address]- 3839 Oct, [facility] [place] [facility] [address] [id number] [place] [address]- 7566 Oct, [facility] [place] [facility] [address] [id number] [place] [address]- 2546 Oct, [facility] [place] [facility] [address] [id number] [place] [address]- 5106 Oct, [facility] [address] [id number] [place] [address]- 1062 Oct, [facility] [place] [facility] [address] [id number] [place] [address]- 8934 Sep, [facility] [place] [facility] [address] [id number] [place] [address]- 5956 Sep, [facility] [place] [facility] [address] [id number] [place] [address]- 2843 Sep, [facility] [place] [facility] [address] [id number] [place] [address]- 2582 Sep, [facility] [place] [facility] [address] [id number] [place] [address]- 6345 Sep, [facility] [place] [facility] [address] [id number] [place] [address]- 0731 Feb, [facility] [place] [facility] [address] [id number] [place] [address]- 7735 Oct, [facility] [place] [facility] [address] [id number] [place] [address]- 6423 Oct, [facility] [place] [facility] [address] [facility] [id number], [place] [address]- 7596 Aug, [facility] [place] [facility] [address] [id number], [place] [address]- 7656 May, [facility] [place] [facility] [address] [id number], [place] [address]- 1017 March, [facility] [place] [facility] [address] [id number] [place] [address]- 2546 March, [facility] [place] [facility] [address] [id number], [place] [address]- 7476 Dec, [facility] [place] [facility] [address] [id number] [place] [address]- 2546 Apr, [facility] [place] [facility] [address] [facility] [id number] [place] [address]- 4962 10 Dec, 2010 IMMUNIZATIONS No Known Immunizations [...]
--- OUTSIDE RECORDS SUMMARY | 2018-10-16 02:24 | XMS REPORT ---
Author Author AVRIL BAILON Organization [facility] Address [address] [place] [address] Care Team Providers Care Ring Maker Name Role Phone AVRIL BAILON Unavailable PROBLEMS Type Condition ICD9-CM Code RQU64-EB Code Onset Dates Condition Status SNOMED Code Problem Epigastric pain R10.13 Active 79981890 Problem Menopausal symptoms N95.1 Active 55224256 Problem Abdominal pain R10.9 Active 97524438 Problem Elevated lipase R74.8 Active 099865295 Problem Gastroesophageal reflux disease without esophagitis K21.9 Active 440377201 Problem Localized edema R60.0 Active 515885200 Problem Morbid obesity, unspecified obesity type E66.01 Active 046062206 Problem Essential hypertension I10 Active 00167417 Problem Acute seasonal allergic rhinitis due to pollen J30.1 Active 23009540 Problem Obesity due to excess calories, unspecified classification, unspecified whether serious comorbidity present E66.09 Active 181150860 ALLERGIES No Information ENCOUNTERS Encounter Location Date Diagnosis [place] [id number] [place] [address] 28698- 3208 Jun, [place] [id number] [place] [address] 08201- 7350 Jun, [place] [id number] [place] [address] 15241- 7771 Jun, [place] [id number] [place] [address] 81368- 1667 Jun, Essential hypertension I10 ; Morbid obesity, unspecified obesity type E66.01 ; Gastroesophageal reflux disease without esophagitis K21.9 and BMI 50.0-59.9, adult Z68.43 [place] [id number] [place] [address] 21704- 5079 May, Essential hypertension I10 and Edema R60.9 [place] [id number] [place] [address] 06648- 6858 March, [place] [address] 06265- 4341 Jan, Yeast vaginitis B37.[address] 74316- 2430 15 Dec, 2017 Acute non-recurrent maxillary sinusitis J01.00 and Bronchitis J40 [address] 63003- 3331 Dec, Viral illness B34.9 and BMI 50.0-59.9, adult Z68.[address] 80349- 7514 Nov, Essential hypertension I10 ; Localized edema R60.0 and Epigastric pain R10.13 [place] [address] 49591- 3535 Nov, [address] 95322- 5569 Oct, Hypokalemia E87.[address] 89998- 9834 Oct, Hypokalemia E87.[address] 56266- 2937 Aug, Obesity due to excess calories, unspecified classification, unspecified whether serious comorbidity present E66.09 ; Acute seasonal allergic rhinitis due to pollen J30.1 and Localized edema R60.[address] 79627- 4523 Apr, Edema R60.9 [place] [address] 17755- 2547 March, Edema R60.9 and Essential hypertension I10 [id number] [place] [address] 65304- 6234 Jan, Bronchitis J40 [place] [id number] [place] [address] 57372- 1669 18 Nov, 2016 Routine gynecological examination V72.31 and Cervical cancer screening Z12.4 [place] [id number] [place] [address] 66843- 3734 03 Nov, 2016 Acute upper respiratory infection, unspecified J06.9 and Other viral agents as the cause of diseases classified elsewhere B97.89 [place] [id number] [place] [address] 08229- 5317 28 Oct, 2016 Essential hypertension I10 [place] [id number] [place] [address] 84693- 4794 Oct, Essential hypertension I10 ; Morbid obesity, unspecified obesity type E66.01 ; Breast cancer screening Z12.39 and Colon cancer screening Z12.11 [place] [id number] [place] [address] 31572- 7850 17 Aug, 2016 [place] [id number] [place] [address] 70311- 9852 29 Jul, 2016 Menopausal symptoms N95.1 [place] [id number] [place] [address] 67445- 8894 27 Jul, 2016 Family history of diabetes mellitus Z83.3 ; Screening, lipid Z13.220 and Morbid obesity, unspecified obesity type E66.01 [place] [id number] [place] [address] 12116- 9656 26 Jul, 2016 Essential hypertension I10 ; Sleep apnea, unspecified type G47.30 ; Morbid obesity, unspecified obesity type E66.01 ; Screening, lipid Z13.220 and Family history of diabetes mellitus Z83.3 [place] [id number] [place] [address] 16542- 2228 08 Jul, 2016 Essential hypertension, hypertension with unspecified goal I10 [facility] IN [facility] [id number] [place] [address] 96244 -8903 14 Jun, 2016 [facility] [id number] [place] [address] 67012 -4131 Jun, Dysuria R30.0 and Acute cystitis without hematuria N30.00 [facility] [id number] [place] [address] 83665- 1112 Jun, [facility] [address] 59434- 0221 March, Abdominal pain R10.9 [facility] [id number] [place] [address] 49106- 4429 Feb, Abdominal pain R10.9 ; Essential hypertension, hypertension with unspecified goal I10 and Lipoma D17.9 [facility] [id number] [place] [address] 32840 -9773 Feb, [facility] [id number] [place] [address] 59108- 1196 Feb, [facility] [id number] [place] [address] 41153- 5478 Feb, [place] [id number] [place] [address] 52907- 3785 Feb, [facility] [id number] [place] [address] 42594- 7355 13 Feb, 2016 Essential hypertension, hypertension with unspecified goal I10 ; Epigastric pain R10.13 and Elevated lipase R74.8 [facility] [id number] [place] [address] 93408- 1802 09 Jul, 2015 Dysuria 788.1 ; Shoulder pain, right 719.41 and Dizziness 780.4 [facility] [id number] [place] [address] 94398- 3449 14 Feb, 2015 [facility] [id number] [place] [address] 80123- 7677 13 Feb, 2015 [facility] [address] [facility] [id number] [place] [address]- 8975 Nov, [facility] [address] [id number] [place] [address]- 6268 Nov, [facility] [place] [facility] [address] [id number] [place] [address]- 9233 Jul, [facility] [place] [facility] [address] [id number] [place] [address]- 9274 Jul, [facility] [place] [facility] [address] [id number] [place] [address]- 1358 May, [facility] [place] [facility] [address] [id number] [place] [address]- 2206 May, [facility] [place] [facility] [address] [id number] [place] [address]- 0877 Apr, [facility] [place] [facility] [address] [id number] [place] [address]- 9438 Apr, [facility] [address] [id number] [place] [address]- 2882 Feb, [facility] [place] [facility] [address] [id number] [place] [address]- 9985 Feb, [facility] [address] [id number] [place] [address]- 3432 Nov, [facility] [place] [facility] [address] [id number] [place] [address]- 8220 Oct, [facility] [place] [facility] [address] [id number] [place] [address]- 4894 Oct, [facility] [place] [facility] [address] [id number] [place] [address]- 6766 Oct, [facility] [place] [facility] [address] [id number] [place] [address]- 2546 Oct, [facility] [place] [facility] [address] [id number] [place] [address]- 2226 Oct, [facility] [address] [id number] [place] [address]- 0871 Oct, [facility] [place] [facility] [address] [id number] [place] [address]- 5742 Sep, [facility] [place] [facility] [address] [id number] [place] [address]- 6094 Sep, [facility] [place] [facility] [address] [id number] [place] [address]- 2351 Sep, [facility] [place] [facility] [address] [id number] [place] [address]- 5631 Sep, [facility] [place] [facility] [address] [id number] [place] [address]- 9726 Sep, [facility] [place] [facility] [address] [id number] [place] [address]- 6304 Feb, [facility] [place] [facility] [address] [id number] [place] [address]- 3574 Oct, [facility] [place] [facility] [address] [id number] [place] [address]- 9035 Oct, [facility] [place] [facility] [address] [facility] [id number] [address]- 1206 Aug, [facility] [place] [facility] [address] [id number], [place] [address]- 2566 May, [facility] [place] [facility] [address] [id number], [place] [address]- 9890 March, [facility] [place] [facility] [address] [id number] [place] [address]- 2546 March, [facility] [place] [facility] [address] [id number], [place] [address]- 8376 Dec, [facility] [place] [facility] [address] [id number] [place] [address]- 2546 Apr, [facility] [place] [facility] [address] [facility] [id number] [place]- 8009 10 Dec, 2010 IMMUNIZATIONS No Known Immunizations SOCIAL HISTORY Never Assessed REASON FOR VISIT Refill request PLAN OF CARE VITAL SIGNS MEDICATIONS Medication Instructions Dosage Frequency Start Date End Date Duration Status Amlodipine Besylate 2.5 MG TAKE ONE TABLET BY MOUTH ONCE DAILY 30 Active Lasix 40 MG Orally Once a day 1 tablet 24h 30 Active RESULTS No Results PROCEDURES No Known [...]
--- OUTSIDE RECORDS SUMMARY | 2018-10-16 02:24 | XMS REPORT ---
Author Author AVRIL BAILON Organization [facility] Address [address] [place] [address] Care Team Providers Care Emt/Dispatcher Name Role Phone AVRIL BAILON Unavailable PROBLEMS Type Condition ICD9-CM Code PFL75-WD Code Onset Dates Condition Status SNOMED Code Problem Epigastric pain R10.13 Active 37395302 Problem Menopausal symptoms N95.1 Active 85597803 Problem Abdominal pain R10.9 Active 42314550 Problem Elevated lipase R74.8 Active 938585237 Problem Gastroesophageal reflux disease without esophagitis K21.9 Active 594465733 Problem Localized edema R60.0 Active 749008306 Problem Morbid obesity, unspecified obesity type E66.01 Active 337835426 Problem Essential hypertension I10 Active 90571034 Problem Acute seasonal allergic rhinitis due to pollen J30.1 Active 86769707 Problem Obesity due to excess calories, unspecified classification, unspecified whether serious comorbidity present E66.09 Active 704416187 ALLERGIES No Information ENCOUNTERS Encounter Location Date Diagnosis [place] [id number] [place] [address] 12716- 1752 Jun, [place] [id number] [place] [address] 32431- 1807 Jun, [place] [id number] [place] [address] 80969- 0859 Jun, [place] [id number] [place] [address] 41584- 7854 Jun, Essential hypertension I10 ; Morbid obesity, unspecified obesity type E66.01 ; Gastroesophageal reflux disease without esophagitis K21.9 and BMI 50.0-59.9, adult Z68.43 [place] [id number] [place] [address] 51857- 1852 May, Essential hypertension I10 and Edema R60.9 [place] [id number] [place] [address] 59739- 2548 March, [place] [address] 74354- 1808 Jan, Yeast vaginitis B37.[address] 46626- 9098 15 Dec, 2017 Acute non-recurrent maxillary sinusitis J01.00 and Bronchitis J40 [address] 75714- 2475 Dec, Viral illness B34.9 and BMI 50.0-59.9, adult Z68.[address] 64344- 9681 Nov, Essential hypertension I10 ; Localized edema R60.0 and Epigastric pain R10.13 [place] [address] 44292- 9257 Nov, [address] 84867- 0041 Oct, Hypokalemia E87.[address] 72734- 4470 Oct, Hypokalemia E87.[address] 92791- 6503 Aug, Obesity due to excess calories, unspecified classification, unspecified whether serious comorbidity present E66.09 ; Acute seasonal allergic rhinitis due to pollen J30.1 and Localized edema R60.[address] 12576- 4086 Apr, Edema R60.9 [place] [address] 61546- 5237 March, Edema R60.9 and Essential hypertension I10 [id number] [place] [address] 00424- 5526 Jan, Bronchitis J40 [place] [id number] [place] [address] 28595- 2747 18 Nov, 2016 Routine gynecological examination V72.31 and Cervical cancer screening Z12.4 [place] [id number] [place] [address] 99003- 0378 03 Nov, 2016 Acute upper respiratory infection, unspecified J06.9 and Other viral agents as the cause of diseases classified elsewhere B97.89 [place] [id number] [place] [address] 41005- 6671 28 Oct, 2016 Essential hypertension I10 [place] [id number] [place] [address] 88904- 2352 Oct, Essential hypertension I10 ; Morbid obesity, unspecified obesity type E66.01 ; Breast cancer screening Z12.39 and Colon cancer screening Z12.11 [place] [id number] [place] [address] 77641- 5383 17 Aug, 2016 [place] [id number] [place] [address] 05975- 8405 29 Jul, 2016 Menopausal symptoms N95.1 [place] [id number] [place] [address] 81243- 6310 27 Jul, 2016 Family history of diabetes mellitus Z83.3 ; Screening, lipid Z13.220 and Morbid obesity, unspecified obesity type E66.01 [place] [id number] [place] [address] 49343- 8398 26 Jul, 2016 Essential hypertension I10 ; Sleep apnea, unspecified type G47.30 ; Morbid obesity, unspecified obesity type E66.01 ; Screening, lipid Z13.220 and Family history of diabetes mellitus Z83.3 [place] [id number] [place] [address] 12662- 6328 08 Jul, 2016 Essential hypertension, hypertension with unspecified goal I10 [facility]ALK IN [facility] [id number] [place] [address] 34775 -4179 14 Jun, 2016 [facility] [id number] [place] [address] 85837 -4530 Jun, Dysuria R30.0 and Acute cystitis without hematuria N30.00 [facility] [id number] [place] [address] 27202- 1630 Jun, [facility] [address] 87436- 5256 March, Abdominal pain R10.9 [facility] [id number] [place] [address] 16715- 2089 Feb, Abdominal pain R10.9 ; Essential hypertension, hypertension with unspecified goal I10 and Lipoma D17.9 [facility] IN [facility] [id number] [place] [address] 90490 -0789 Feb, [facility] [id number] [place] [address] 60484- 8875 Feb, [facility] [id number] [place] [address] 61821- 6426 Feb, [place] [id number] [place] [address] 61205- 8002 Feb, [facility] [id number] [place] [address] 67277- 1680 13 Feb, 2016 Essential hypertension, hypertension with unspecified goal I10 ; Epigastric pain R10.13 and Elevated lipase R74.8 [facility] [id number] [place] [address] 23648- 2799 09 Jul, 2015 Dysuria 788.1 ; Shoulder pain, right 719.41 and Dizziness 780.4 [facility] [id number] [place] [address] 18749- 5605 14 Feb, 2015 [facility] [id number] [place] [address] 78405- 6316 13 Feb, 2015 [facility] [address] [facility] [id number] [place] [address]- 5931 Nov, [facility] [address] [id number] [place] [address]- 8107 Nov, [facility] [place] [facility] [address] [id number] [place] [address]- 3782 Jul, [facility] [place] [facility] [address] [id number] [place] [address]- 0332 Jul, [facility] [place] [facility] [address] [id number] [place] [address]- 2718 May, [facility] [place] [facility] [address] [id number] [place] [address]- 0130 May, [facility] [place] [facility] [address] [id number] [place] [address]- 7972 Apr, [facility] [place] [facility] [address] [id number] [place] [address]- 8547 Apr, [facility] [address] [id number] [place] [address]- 9238 Feb, [facility] [place] [facility] [address] [id number] [place] [address]- 0187 Feb, [facility] [address] [id number] [place] [address]- 6217 Nov, [facility] [place] [facility] [address] [id number] [place] [address]- 4236 Oct, [facility] [place] [facility] [address] [id number] [place] [address]- 3123 Oct, [facility] [place] [facility] [address] [id number] [place] [address]- 3696 Oct, [facility] [place] [facility] [address] [id number] [place] [address]- 2546 Oct, [facility] [place] [facility] [address] [id number] [place] [address]- 4456 Oct, [facility] [address] [id number] [place] [address]- 2329 Oct, [facility] [place] [facility] [address] [id number] [place] [address]- 6838 Sep, [facility] [place] [facility] [address] [id number] [place] [address]- 6353 Sep, [facility] [place] [facility] [address] [id number] [place] [address]- 5545 Sep, [facility] [place] [facility] [address] [id number] [place] [address]- 4979 Sep, [facility] [place] [facility] [address] [id number] [place] [address]- 5664 Sep, [facility] [place] [facility] [address] [id number] [place] [address]- 6951 Feb, [facility] [place] [facility] [address] [id number] [place] [address]- 8088 Oct, [facility] [place] [facility] [address] [id number] [place] [address]- 6464 Oct, [facility] [place] [facility] [address] [facility] [id number], [place] [address]- 3372 Aug, [facility] [place] [facility] [address] [id number], [place] [address]- 5206 May, [facility] [place] [facility] [address] [id number], [place] [address]- 5633 March, [facility] [place] [facility] [address] [id number] [place] [address]- 2546 March, [facility] [place] [facility] [address] [id number], [place] [address]- 2536 Dec, [facility] [place] [facility] [address] [id number] [place] [address]- 2546 Apr, [facility] [place] [facility] [address] [facility] [id number] [place] [address]- 0031 10 Dec, 2010 IMMUNIZATIONS No Known Immunizations SOCIAL HISTORY Never Assessed REASON FOR VISIT medication changes PLAN OF CARE VITAL SIGNS MEDICATIONS Medication Instructions Dosage Frequency Start Date End Date Duration Status Lasix 20 MG Orally Once a day 1 tablet 24h Active RESULTS No Results PROCEDURES No Known [...]
--- OUTSIDE RECORDS SUMMARY | 2018-10-16 02:25 | XMS REPORT ---
Author Author AVRIL BAILON Organization [facility] [place] Address [address] [place] [address] Care Team Providers Care Quantitative Developer Name Role Phone AVRIL BAILON Unavailable PROBLEMS Type Condition ICD9-CM Code CWP10-QN Code Onset Dates Condition Status SNOMED Code Problem Epigastric pain R10.13 Active 35778988 Problem Abdominal pain R10.9 Active 87816862 Problem Elevated lipase R74.8 Active 590394884 Problem Localized edema R60.0 Active 096062102 Problem Acute seasonal allergic rhinitis due to pollen J30.1 Active 22977202 Problem Morbid obesity, unspecified obesity type E66.01 Active 188978790 Problem Menopausal symptoms N95.1 Active 57433503 Problem Obesity due to excess calories, unspecified classification, unspecified whether serious comorbidity present E66.09 Active 147726248 Problem Essential hypertension I10 Active 13501474 ALLERGIES No Information ENCOUNTERS Encounter Location Date Diagnosis [place] [address] [address] Jun, [place] [address] [address] May, Essential hypertension I10 and Edema R60.9 [place] [address] [address] [place] [id number] [place] [address] March, [place] [address] [address] Jan, Yeast vaginitis B37.3 [place] [address] [address] 15 Dec, 2017 Acute non-recurrent maxillary sinusitis J01.00 and Bronchitis J40 [place] [address] [address] Dec, Viral illness B34.9 and BMI 50.0-59.9, adult Z68.43 [place] [address] [address] Nov, Essential hypertension I10 ; Localized edema R60.0 and Epigastric pain R10.13 [place] [address] [address] Nov, [place] [address] [address] Oct, Hypokalemia E87.6 [place] [address] [address] Oct, Hypokalemia E87.6 [place] [address] [address] Aug, Obesity due to excess calories, unspecified classification, unspecified whether serious comorbidity present E66.09 ; Acute seasonal allergic rhinitis due to pollen J30.1 and Localized edema R60.0 [place] [address] [address] Apr, Edema R60.9 [place] [address] [address] March, Edema R60.9 and Essential hypertension I10 [place] [address] [address] Jan, Bronchitis J40 [place] [address] [address] [place] [id number] [place] [address] Nov, Routine gynecological examination V72.31 and Cervical cancer screening Z12.[address] [address] Nov, Other viral agents as the cause of diseases classified elsewhere B97.89 and Acute upper respiratory infection, unspecified J06.9 [place] [address] [address] Oct, Essential hypertension I10 [place] [address] [address] [place] [id number] [place] [address]- [address] Oct, Essential hypertension I10 ; Morbid obesity, unspecified obesity type E66.01 ; Breast cancer screening Z12.39 and Colon cancer screening Z12.11 [place] [address] [address] Aug, [place] [address] [address] Jul, Menopausal symptoms N95.1 [place] [address] [address] 27 Jul, 2016 Family history of diabetes mellitus Z83.3 ; Screening, lipid Z13.220 and Morbid obesity, unspecified obesity type E66.01 [place] [address] [address]- [address] Jul, Essential hypertension I10 ; Sleep apnea, unspecified type G47.30 ; Morbid obesity, unspecified obesity type E66.01 ; Screening, lipid Z13.220 and Family history of diabetes mellitus Z83.3 [place] [address] [address]- [address] 08 Jul, 2016 Essential hypertension, hypertension with unspecified goal I10 [facility] [place] [address] [address] [place] [id number] [place] [address] Jun, [facility] [place] [address] [address] Jun, Dysuria R30.0 and Acute cystitis without hematuria N30.00 [place] [address] [address]- [address] Jun, [place] [address] [address] [place] [id number] [place] [address]656- [address] March, Abdominal pain R10.9 [place] [address] [address]- [address] Feb, Abdominal pain R10.9 ; Essential hypertension, hypertension with unspecified goal I10 and Lipoma D17.[address] [facility] [address] [place] [id number] [place] [address] Feb, [facility] [place] [address] [place] [id number] [place] [address]- [address] Feb, [facility] [place] [address] [place] [id number] [place] [address]- [address] Feb, [facility] [place] [address] [place] [id number] [place] [address]73- 2810 Feb, [facility] [place] [address] [place] [id number] [place] [address] 28260- 28[address] Feb, Essential hypertension, hypertension with unspecified goal I10 ; Epigastric pain R10.13 and Elevated lipase R74.8 [facility] [place] [address] [place] [id number] [place] [address]- [address] 09 Jul, 2015 Dysuria 788.1 ; Shoulder pain, right 719.41 and Dizziness 780.4 [facility] [place] [address] [place] [id number] [place] [address]- [address] Feb, [facility] [place] [address] [place] [id number] [place] [address] 30570- 8670 Feb, [facility] [place] [address] [place] [id number] [place] [address]- [address] Nov, [facility] [place] [address] [place] [id number] [place] [address] 22481- 4203 Nov, [facility] [place] [address] [place] [id number] [place] [address] 8[address]11- [address] Jul, [facility] [place] [address] [place] [id number] [place] [address] 8[address]01- [address] Jul, [facility] [place] [address] [place] [id number] [place] [address]- [address] 14 May, 2014 [facility] [address] [id number] [place] [address]- [address] 14 May, 2014 [facility] [place] [facility] [address] [id number] [place] [address]- [address] Apr, [facility] [place] [facility] [address] [id number] [place] [address]- [address] Apr, [facility] [place] [facility] [address] [id number] [place] [address]- 8795 Feb, [facility] [address] [id number] [place] [address]- [address] Feb, [facility] [place] [facility] [address] [id number] [place] [address]- [address]198 Nov, [facility] [address] [id number] [place] [address]- [address]64 Oct, [facility] [address] [id number] [place] [address]- [address]35 Oct, [facility] [place] [facility] [address] [id number] [place] [address]- 8519 Oct, [facility] [address] [id number] [place] [address]- 475[address] Oct, [facility] [place] [facility] [address] [id number] [place] [address]- [address]32 Oct, [facility] [place] [facility] [address] [id number] [place] [address]- 2746 Oct, [facility] [place] [facility] [address] [id number] [place] [address]- 1851 Sep, [facility] [place] [facility] [address] [id number] [place] [address]- [address] Sep, [facility] [place] [facility] [address] [id number] [place] [address]- 47[address] Sep, [facility] [place] [facility] [address] [id number] [address] Sep, [facility] [place] [address] [id number] [address] Sep, [facility] [place] [address] [id number] [address]- [address] Feb, [facility] [place] [address] [address]- [address] Oct, [facility] [place] [address] [facility] [id number] [address]- [address] Oct, [facility] [place] [address] [address]- [address] Aug, [facility] [place] [address] [address]- [address] May, [facility] [place] [address] [address]- [address] March, [facility] [place] [address] [address]- [address] March, [facility] [place] [address] [id number] [address]- [address] Dec, [facility] [place] [address] [address]- [address] Apr, [facility] [place] [address] [id number] [address]- [address] Dec, IMMUNIZATIONS No Known Immunizations SOCIAL HISTORY Never Assessed REASON FOR VISIT Refill request PLAN OF CARE VITAL SIGNS MEDICATIONS Unknown [...]
--- OUTSIDE RECORDS SUMMARY | 2018-10-16 02:28 | XMS REPORT | Continuity of Care Document ---
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 07/05/18 02:05 Serum or plasma sodium measurement (moles/volume) 141 mmol/L 135-145 Serum or plasma potassium measurement (moles/volume) 3.5 mmol/L 3.6-5.0 Serum or plasma chloride measurement (moles/volume) 107 mmol/L 98-107 Carbon dioxide 26 mmol/L 21-32 Serum or plasma anion gap determination (moles/volume) 8 mmol/L 5-14 Serum or plasma urea nitrogen measurement (mass/volume) 17 mg/dL 7-18 Serum or plasma creatinine measurement (mass/volume) 0.91 mg/dL 0.60-1.30 Serum or plasma urea nitrogen/creatinine mass ratio 19 NRG Serum or plasma creatinine measurement with calculation of estimated glomerular filtration rate > NRG Serum or plasma glucose measurement (mass/volume) 104 mg/dL 70-105 Serum or plasma calcium measurement (mass/volume) 9.2 mg/dL 8.5-10.1 Serum or plasma total bilirubin measurement (mass/volume) 0.3 mg/dL 0.1-1.0 Serum or plasma alkaline phosphatase measurement (enzymatic activity/volume) 84 U/L 40-136 Serum or plasma aspartate aminotransferase measurement (enzymatic activity/ volume) 15 U/L 5-34 Serum or plasma alanine aminotransferase measurement (enzymatic activity/volume ) 18 U/L 0-55 Serum or plasma protein measurement (mass/volume) 6.7 g/dL 6.4-8.2 Serum or plasma albumin measurement (mass/volume) 3.6 g/dL 3.2-4.5 Serum or plasma creatine kinase measurement (enzymatic activity/volume) - 07/05 02:05 Serum or plasma creatine kinase measurement (enzymatic activity/volume) 138 U/L 29-168 Serum or plasma troponin i.cardiac measurement (mass/volume) - 07/05/18 02:05 Serum or plasma troponin i.cardiac measurement (mass/volume) < ng/ mL <0.30 Myoglobin, serum - 07/05/18 02:05 Myoglobin, serum 53.4 ng/mL 10.0-92.0 Complete blood count (CBC) with automated white blood cell (WBC) differential - 07/05/18 05:58 Blood leukocytes automated count (number/volume) 8.2 10*3/uL 4.3-11.0 Blood erythrocytes automated count (number/volume) 3.73 10*6/uL 4.35-5.85 Venous blood hemoglobin measurement (mass/volume) 10.6 g/dL 11.5-16.0 Blood hematocrit (volume fraction) 34 % 35-52 Automated erythrocyte mean corpuscular volume 90 [foz_us] 80-99 Automated erythrocyte mean corpuscular hemoglobin (mass per erythrocyte) 28 pg 25-34 Automated erythrocyte mean corpuscular hemoglobin concentration measurement ( mass/volume) 32 g/dL 32-36 Automated erythrocyte distribution width ratio 15.1 % 10.0-14.5 Automated blood platelet count (count/volume) 309 10*3/uL 130-400 Automated blood platelet mean volume measurement 10.9 [foz_us] 7.4-10.4 Automated blood neutrophils/100 leukocytes 38 % 42-75 Automated blood lymphocytes/100 leukocytes 43 % 12-44 Blood monocytes/100 leukocytes 7 % 0-12 Automated blood eosinophils/100 leukocytes 12 % 0-10 Automated blood basophils/100 leukocytes 0 % 0-10 Blood neutrophils automated count (number/volume) 3.1 10*3 1.8-7.8 Blood lymphocytes automated count (number/volume) 3.5 10*3 1.0-4.0 Blood monocytes automated count (number/volume) 0.6 10*3 0.0-1.0 Automated eosinophil count 1.0 10*3/uL 0.0-0.3 Automated blood basophil count (count/volume) 0.0 10*3/uL 0.0-0.1 Comprehensive metabolic panel - 07/05/18 05:58 Serum or plasma sodium measurement (moles/volume) 142 mmol/L 135-145 Serum or plasma potassium measurement (moles/volume) 3.5 mmol/L 3.6-5.0 Serum or plasma chloride measurement (moles/volume) 108 mmol/L 98-107 Carbon dioxide 26 mmol/L 21-32 Serum or plasma anion gap determination (moles/volume) 8 mmol/L 5-14 Serum or plasma urea nitrogen measurement (mass/volume) 20 mg/dL 7-18 Serum or plasma creatinine measurement (mass/volume) 0.82 mg/dL 0.60-1.30 Serum or plasma urea nitrogen/creatinine mass ratio 24 NRG Serum or plasma creatinine measurement with calculation of estimated glomerular filtration rate > NRG Serum or plasma glucose measurement (mass/volume) 103 mg/dL 70-105 Serum or plasma calcium measurement (mass/volume) 9.1 mg/dL 8.5-10.1 Serum or plasma total bilirubin measurement (mass/volume) 0.4 mg/dL 0.1-1.0 Serum or plasma alkaline phosphatase measurement (enzymatic activity/volume) 75 U/L 40-136 Serum or plasma aspartate aminotransferase measurement (enzymatic activity/ volume) 16 U/L 5-34 Serum or plasma alanine aminotransferase measurement (enzymatic activity/volume ) 18 U/L 0-55 Serum or plasma protein measurement (mass/volume) 6.3 g/dL 6.4-8.2 Serum or plasma albumin measurement (mass/volume) 3.4 g/dL 3.2-4.5 Lipid 1996 panel - 07/05/18 05:58 Serum or plasma triglyceride measurement (mass/volume) 65 mg/dL <150 Serum or plasma cholesterol measurement (mass/volume) 158 mg/dL < 200 Serum or plasma cholesterol in HDL measurement (mass/volume) 46 mg/ dL 40-60 Cholesterol in LDL [mass/volume] in serum or plasma by direct assay 99 mg/dL 1-129 Serum or plasma cholesterol in VLDL measurement (mass/volume) 13 mg/ dL 5-40 Encounters ACCT No. Visit Date/Time Discharge Status Pt. Type Provider Facility Loc./Unit Complaint [id number] 12/10/2014 11:40:00 12/10/2014 23:59:59 CLS Outpatient DICK KENT APRN [id number] 08/10/2014 13:37:00 08/10/2014 23:59:59 CLS Outpatient DICK KENT APRN [id number] 05/02/2014 12:47:00 05/02/2014 23:59:59 CLS Outpatient COTY MURPHY DO [id number] 03/09/2014 11:44:00 03/09/2014 23:59:59 CLS Outpatient BRANDO THOMAS MD [id number] 11/03/2013 09:44:00 11/03/2013 23:59:59 CLS Outpatient DEION BAILON APRN [id number] 10/24/2013 10:43:00 10/24/2013 23:59:59 CLS Outpatient COTY MURPHY DO [id number] 09/01/2012 15:41:00 09/01/2012 23:59:59 CLS Outpatient BRANDO THOMAS MD [id number] 08/26/2016 13:06:00 Document Registration [id number] 05/06/2017 08:45:00 Document Registration [id number] 12/21/2016 18:06:00 Document Registration [id number] 01/13/2018 08:40:00 01/13/2018 23:59:59 CLS Outpatient DEION BAILON APRN [facility] [id number] 12/22/2017 10:20:00 Document Registration [id number] 11/18/2017 10:00:00 Document Registration [id number] 08/25/2018 11:30:00 08/25/2018 23:59:59 CLS Outpatient MARTINA TANAURORA HILARIO [facility] RAD XRAY [id number] 08/28/2017 22:05:00 08/28/2017 23:03:00 DIS Emergency BRAYAN STEPHENSP [facility] ER DIZZY,TASTED BLOOD DOWN THROAT WHEN BLOWING NOSE [id number] 11/12/2016 07:12:00 11/12/2016 23:59:59 CLS Outpatient DEION BAILON 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 [facility] RAD BREAST CA SCREENING [id number] 08/08/2016 19:16:00 08/08/2016 21:52:00 DIS Emergency HAKEEM HUMPHREYS MD [facility] ER L SIDE PAIN, SOA [id number] 05/01/2016 13:00:00 05/01/2016 23:59:59 CLS Outpatient CHRIS SALAZAR MD [facility] SDC UPPER GASTRIC PAIN, LIPOMA ON FOREHEAD [id number] 04/23/2016 15:14:00 04/23/2016 15:34:00 DIS Outpatient CHRIS SALAZAR MD [facility] PREOP UPPER GASTRIC PAIN , LIPOMA FOREHEAD [id number] 03/17/2016 09:41:00 03/17/2016 23:59:59 CLS Outpatient STEVEN PORTILLO 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 [employer]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 [facility] RAD ELEVATED LIPASE [id number] 03/08/2016 11:17:00 03/08/2016 13:49:00 DIS Emergency HAKEEM HUMPHREYS MD [facility] ER VOMITING/CP [id number] 11/09/2015 19:43:00 11/09/2015 23:59:59 CLS Outpatient KHRIS LAWRENCE DO [facility] FB IN THROAT [id number] 11/09/2015 17:55:00 11/09/2015 22:12:00 DIS Emergency GRISELDA MOCK MD [facility] ER VOMITING/LOSS APPETITE [id number] 08/12/2014 11:18:00 08/12/2014 14:02:00 DIS Emergency MALLORY MARK DO [facility] ER COUGHING UP BLOOD AND CHEST WALL AND BACK PAIN [id number] 03/08/2014 07:56:00 03/08/2014 13:21:00 DIS Emergency SUNITA SAGASTUME DO [facility] ER RIGHT SIDE PAIN [id number] 11/13/2013 10:44:00 11/13/2013 23:59:59 CLS Outpatient JOSHUA BROWN [employer]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 [facility] RAD SCREENING [id number] 10/22/2013 19:14:00 10/22/2013 20:52:00 DIS Emergency HAKEEM HUMPHREYS MD [facility] ER COUGH [id number] 07/02/2013 17:58:00 07/02/2013 21:21:00 DIS Emergency PACO KERR [facility] ER MULTIPLE COMPLAINTS [id number] 07/22/2018 10:36:00 Document Registration [id number] 07/04/2018 20:09:00 Document Registration [id number] 02/24/2017 15:09:00 Document Registration [id number] 02/24/2017 15:09:00 Document Registration [id number] 02/24/2017 15:09:00 Document Registration [id number] 02/24/2017 15:09:00 Document Registration [id number] 02/24/2017 15:09:00 Document Registration [id number] 02/24/2017 15:09:00 Document Registration [id number] 02/24/2017 15:09:00 Document Registration [id number] 02/24/2017 15:09:00 Document Registration [id number] 02/24/2017 15:09:00 Document Registration [id number] 02/24/2017 15:09:00 Document Registration [id number] 02/24/2017 15:09:00 Document Registration [id number] 02/24/2017 15:09:00 Document Registration [id number] 11/25/2012 08:44:00 Document Registration [id number] 08/26/2012 23:21:00 Document Registration [id number] 06/27/2012 13:42:00 Document Registration [id number] 06/14/2012 09:41:00 Document Registration [id number] 05/23/2012 18:40:00 Document Registration [id number] 02/06/2012 10:18:00 Document Registration [id number] 12/12/2011 14:04:00 Document Registration [id number] 08/27/2011 21:41:00 Document Registration [id number] 07/29/2011 11:40:00 Document Registration [id number] 07/07/2011 10:00:00 Document Registration [id number] 05/04/2011 14:09:00 Document Registration [id number] 03/21/2011 17:55:00 Document Registration [id number] 02/02/2011 13:03:00 Document Registration [id number] 01/19/2011 09:50:00 Document Registration [id number] 06/22/2010 04:54:00 Document Registration [id number] 02/07/2010 08:47:00 Document Registration [id number] 08/13/2009 10:50:00 Document Registration [id number] 04/12/2009 09:25:00 Document Registration [id number] 07/05/2008 15:20:00 Document Registration [id number] 05/12/2006 15:01:00 Document Registration
[2018-10-16] MEDS ORDERED: RT-ALBUTEROL/IPRATROPIUM 3 ML (DUONEB) VIAL INH ONE ×2 (03:00→03:45)
[2018-10-16] MEDS ORDERED: BENZ100C18 PO (03:32)
[2018-10-16] MEDS ORDERED: DOXY100C42 PO (03:32)
[2018-10-16] MEDS ORDERED: RX-ALBUTEROL INHALER (PROAIR) 8 GM IH STA (03:33)
[2018-10-16] MEDS ORDERED: METH4TAB PO (03:33)
[2018-10-16] MEDS ORDERED: RX-DOXYCYCLINE 100 MG (VIBRAMYCIN) TAB PPK#2 PO STA (03:34)
--- NOTE | 2018-10-16 03:35 | ED Cough/URI ---
General Chief Complaint: Cough/Cold/Flu Symptoms Stated Complaint: COUGHING,CONGESTION Source: patient History of Present Illness Date Seen by Provider: Oct 16, 2018 Time Seen by Provider: 00:50 Initial Comments PT ARRIVES VIA POV WITH SON, WHO IS ALSO BEING SEEN FOR SAME PROBLEMS PT STATES SHE HAS BEEN SICK FOR A WEEK WITH COUGH AND CONGESTION STATES SHE HAS HAD COLORED NASAL DRAINAGE COUGH IS MOSTLY NON-PRODUCTIVE, BUT ONE TIME COUGHED UP SOMETHING HARD AND YELLO C/O CHEST TIGHTNESS WITH BREATHING HAS HAD FEVER UP TO 102, BUT NOT TODAY HAS TAKEN NYQUIL FOR SYMPTOMS SON BEGAN HAVING THE SAME SYMPTOMS ON WEDNESDAY NIGHT PT AND SON BOTH WORK AT [employer], AND BOTH HAVE CONTINUED TO WORK. PCP: ALBERT Allergies and Home Medications Allergies Coded Allergies: ibuprofen (Verified Allergy, Severe, 05/01/16) Home Medications Amlodipine Besylate 2.5 Mg Tablet, 2.5 MG PO DAILY, (Reported) Aspirin 81 Mg Tablet.dr, 81 MG PO DAILY, (Reported) Benzonatate 100 Mg Capsule, 1-2 TAB PO TID Prescribed by: SUNITA SAGASTUME on 10/16/18331 Doxycycline Monohydrate 100 Mg Capsule, 100 MG PO BID Prescribed by: SUNITA SAGASTUME on 10/16/18331 Furosemide 40 Mg Tablet, 40 MG PO DAILY, (Reported) Methylprednisolone 4 Mg Tab.ds.pk, 4 MG PO UD Prescribed by: SUNITA SAGASTUME on 10/16/18332 Multivit-Min/FA/Lycopene/Lut 1 Each Tablet, 1 TAB PO DAILY, (Reported) Omeprazole 20 Mg Capsule.dr, 20 MG PO BID, (Reported) LAST FILLED #60 05-07-18 Patient Home Medication List Home Medication List Reviewed: Yes Review of Systems Review of Systems Constitutional: see HPI, fever EENTM: see HPI, nose congestion, throat pain Respiratory: see HPI, cough, wheezing Cardiovascular: see HPI, chest pain Gastrointestinal: no symptoms reported Genitourinary: no symptoms reported Musculoskeletal: no symptoms reported Skin: no symptoms reported Psychiatric/Neurological: No Symptoms Reported Hematologic/Lymphatic: No Symptoms Reported Immunological/Allergic: no symptoms reported Past Qxrtpox-Aohlab-Tktmhk Hx Patient Social History Alcohol Use: Past History (HISTORY OF ABUSE, STATES "NONE FOR A LONG TIME" ) Recreational Drug Use: No Smoking Status: Former Smoker (1 PPD) Type Used: Cigarettes Former Smoker, Quit: Aug 08, 2007 2nd Hand Smoke Exposure: No Recent Foreign Travel: No Contact w/Someone Who Travel: No Recent Hopitalizations: No Immunizations Up To Date Tetanus Booster (TDap): More than 5yrs Date of Influenza Vaccine: Aug 29, 2013 Seasonal Allergies Seasonal Allergies: No Past Medical History Surgeries: Yes (CARDIAC CATH 06/2011--NO INTERVENTION; EGD) Cardiac, Gallbladder, Tubal Ligation Respiratory: Yes Pneumonia Cardiac: Yes (CARDIAC 06/2011--NO INTERVENTION) Hypertension Neurological: No 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 Disorders: No [employer] History: Tubal Ligation Sexually Transmitted Disease: No Genitourinary: No Gastrointestinal: Yes Gastroesophageal Reflux, Hiatal Hernia, Ulcer Musculoskeletal: Yes (BACK PAIN R/T OBESITY) Chronic Back Pain Endocrine: Yes (MORBID OBESITY) HEENT: No Cancer: No Psychosocial: Yes Anxiety Integumentary: No Blood Disorders: No Family Medical History Asthma 19 MOTHER Cardiovascular disease 19 FATHER Diabetes mellitus 19 MOTHER G8 BROTHER G8 SISTER Diabetes, Hypertension Physical Exam Vital Signs - First Documented Capillary Refill : Height: 5'8.00" Weight: 391lbs. 8.0oz. 177.583755ts; 59.3 BMI Method:Stated General Appearance: no apparent distress, obese HEENT: PERRL/EOMI, other (CLEAR POST NASAL DRAINAGE, MILD NASAL CONGESTION. 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, no motor/sensory deficits, alert, normal mood/affect, oriented x 3 Skin: normal color, warm/dry Progress/Results/Core Measures Suspected Sepsis SIRS Temperature: Pulse: Respiratory Rate: Blood Pressure / Mean: Results/Orders Lab Results Laboratory Tests Test 10/16/18 03:04 Range/Units Group A Streptococcus Screen NEGATIVE NEGATIVE Micro Results Microbiology 10/16/18 Influenza Types A,B Antigen (VERNA) - Final, Complete My Orders Orders - SUNITA SAGASTUME DO Influenza A And B Antigens (10/16/18 02:49) Chest Pa/Lat (2 View) (10/16/18 02:59) Albuterol/Ipra Inhalation Soln (Duoneb I (10/16/18 03:00) Rt Request For Service (10/16/18 02:59) Svn Small Volume Nebulizer (10/16/18 02:59) Rapid Strep A Screen (10/16/18 03:00) Rx-Albuterol Inhaler (Rx-Proair) (10/16/18 03:33) Rt Request For Service (10/16/18 03:33) Rx-Doxycycline Tablet (Rx-Vibramycin Tab (10/16/18 03:34) Benzonatate Capsule (Tessalon Perles) (10/16/18 03:45) Albuterol/Ipra Inhalation Soln (Duoneb I (10/16/18 03:45) Svn Small Volume Nebulizer (10/16/18 03:39) Rt Request For Service (10/16/18 03:39) Benzonatate Capsule (Tessalon Perles) (10/16/18 03:49) Medications Given in ED Current Medications Medications Dose Ordered Sig/Ken Route Start Time Stop Time Status Last Admin Dose Admin Albuterol/ Ipratropium 3 ml ONCE ONCE INH 10/16/18 03:00 10/16/18 03:01 DC 10/16/18 03:09 3 ML Albuterol/ Ipratropium 3 ml ONCE ONCE INH 10/16/18 03:45 10/16/18 03:46 DC 10/16/18 03:53 3 ML Vital Signs/I&O 10/16/18 10/16/18 10/16/18 10/16/18 02:40 02:40 03:11 03:53 Temp 97.6 Pulse 70 Resp 16 B/P (MAP) 157/94 (115) Pulse Ox 99 100 98 O2 Delivery Room Air Room Air Room Air Room Air 10/16/18 10/16/18 04:03 04:11 Temp 97.9 Pulse 103 Resp 18 B/P (MAP) 138/93 (108) Pulse Ox 99 99 O2 Delivery Room Air Room Air Capillary Refill : Progress Note : Progress Note NO COUGHING NOTED AT ANY TIME DURING ER STAY DECREASED WHEEZING AFTER NEB TREATMENTS. Diagnostic Imaging Comments CXR--NO ACUTE PROCESS, PENDING RADIOLOGIST REVIEW Reviewed: Reviewed by Me Departure Impression Primary Impression: Bronchitis Disposition: 01 HOME, SELF-CARE Condition: Improved Departure-Patient Inst. [facility]errals[facility] Primary Care Physician DEION BAILON (Family) Primary Care Physician Patient Instructions: Acute Bronchitis, Adult (DC) Add. Discharge Instructions: LOTS OF CLEAR LIQUIDS TYLENOL NEEDED FOR PAIN OR FEVER OVER THE COUNTER MEDICATIONS FOR COUGH AND CONGESTIONS FOLLOW UP WITH YOUR DR IN 3-4 DAYS IF NO BETTER All discharge instructions reviewed with patient and/or family. Voiced understanding. Scripts Methylprednisolone (Medrol) 4 Mg Tab.ds.pk 4 MG PO UD, #1 PKG Prov: SUNITA SAGASTUME DO 10/16/18 Benzonatate (TESSALON PERLES) 100 Mg Capsule 1-2 TAB PO TID for Cough, #30 CAP Prov: SUNITA SAGASTUME DO 10/16/18 Doxycycline Monohydrate (Doxycycline Monohydrate) 100 Mg Capsule 100 MG PO BID, #20 CAP Prov: SUNITA SAGASTUME DO 10/16/18 Work/School Note: Work Release Form Date Seen in the Emergency Department: Oct 16, 2018 Return to Work: Oct 18, 2018 SUNITA SAGASTUME DO Oct 16, 2018 03:35
[2018-10-16] MEDS ORDERED: BENZONATATE 100 MG (TESSALON) CAPSULE PO SCH (03:45)
[2018-10-16] MEDS ORDERED: BENZONATATE 100 MG (TESSALON) CAPSULE PO ONE (03:49)
[2018-10-16 04:11] VITALS: BP 138/93
--- NOTE | 2018-10-16 06:39 | Diagnostic Imaging Report ---
EXAMINATION: CHEST (PA AND LATERAL) CLINICAL INDICATION: 53-year-old female, cough. COMPARISON: July 04, 2018. FINDINGS: Heart size and mediastinal contours are unremarkable. There is no identified pneumothorax. There is no pleural effusion. There is no identified focal airspace consolidation. Recently noted pulmonary nodule on CT chest of July 04, 2018 is not well-seen radiographically. IMPRESSION: 1. No identified acute cardiopulmonary abnormality. 2. Previously described pulmonary nodule on CT chest of July 04, 2018 is not well seen radiographically. This likely relates to improve sensitivity for detection on CT. Further workup of the nodule is recommended. Dictated by: Dictated on workstation # [id number]
== END 2018-10-16 04:11 | disposition home or self-care (01) ==
LOC: EDUNIT# 02:14 → ER 02:18
DX: J40 Bronchitis, not specified as acute or chronic (principal); I10 Essential (primary) hypertension; K21.9 Gastro-esophageal reflux disease without esophagitis; E66.01 Morbid (severe) obesity due to excess calories; F41.9 Anxiety disorder, unspecified; Z87.19 Personal history of other diseases of the digestive system; Z88.6 Allergy status to analgesic agent; Z82.49 Family history of ischemic heart disease and other diseases of the circulatory system; Z68.43 Body mass index [BMI] 50.0-59.9, adult; Z79.82 Long term (current) use of aspirin; Z79.52 Long term (current) use of systemic steroids; Z87.891 Personal history of nicotine dependence; Z98.51 Tubal ligation status; Z87.01 Personal history of pneumonia (recurrent)
CPT/HCPCS: 71046; 87430; 87804; 94640

== ENCOUNTER 2019-03-29 19:47 | Emergency (ER) | payer BC ==
[~2019-03-29] VITALS: Ht 172.7 cm; Wt 168.7 kg
[~2019-03-29 19:47] MED LIST changes: -AMLO2.5T3 PO; +AMLO2.5T4 PO; +DOXY100C42 PO; -HYDR-3454 PO; +HYDR-3455 PO; +METH4TAB PO
[2019-03-29 20:21] VITALS: BP_SYST 131; BP_SYST 137; BP_SYST 145; BP_DIAS 100; BP_DIAS 83; BP_DIAS 89
[2019-03-29 20:26] LABS: BASOPHILS % (AUTO) 0 % (0-10); EOSINOPHILS # (AUTO) 0.3 10^3/uL (0.0-0.3); EOSINOPHILS % (AUTO) 3 % (0-10); HEMATOCRIT 43 % (35-52); HEMOGLOBIN 14.2 G/DL (11.5-16.0); LYMPHOCYTES # (AUTO) 3.9 X 10^3 (1.0-4.0); LYMPHOCYTES % (AUTO) 40 % (12-44); MEAN CORPUSCULAR HEMOGLOBIN 29 PG (25-34); MEAN CORPUSCULAR HGB CONC 33 G/DL (32-36); MEAN CORPUSCULAR VOLUME 88 FL (80-99); MEAN PLATELET VOLUME 10.8 FL (7.4-10.4); MONOCYTES # (AUTO) 0.9 X 10^3 (0.0-1.0); MONOCYTES % (AUTO) 9 % (0-12); NEUTROPHILS # (AUTO) 4.7 X 10^3 (1.8-7.8); NEUTROPHILS % (AUTO) 49 % (42-75); PLATELET COUNT 339 10^3/uL (130-400); RED CELL DISTRIBUTION WIDTH 14.1 % (10.0-14.5); WHITE BLOOD COUNT 9.7 10^3/uL (4.3-11.0)
[2019-03-29 20:42] LABS: ALANINE AMINOTRANSFERASE 26 U/L (0-55); ALBUMIN 4.6 GM/DL (3.2-4.5); ALKALINE PHOSPHATASE 93 U/L (40-136); BILIRUBIN,TOTAL 0.8 MG/DL (0.1-1.0); BUN/CREATININE RATIO 19; CALCIUM 10.5 MG/DL (8.5-10.1); CARBON DIOXIDE 28 MMOL/L (21-32); CHLORIDE 92 MMOL/L (98-107); CREATINE KINASE 355 U/L (29-168); CREATININE SERUM 1.59 MG/DL (0.60-1.30); GFR ESTIMATED 41; GLUCOSE 122 MG/DL (70-105); MAGNESIUM 2.1 MG/DL (1.8-2.4); POTASSIUM 2.7 MMOL/L (3.6-5.0); SODIUM 137 MMOL/L (135-145); TOTAL PROTEIN 9.1 GM/DL (6.4-8.2)
[2019-03-29 20:43] LABS: INR 1.1 (0.8-1.4); PROTHROMBIN TIME PATIENT 14.2 SEC (12.2-14.7)
--- NOTE | 2019-03-29 20:50 | Diagnostic Imaging Report ---
INDICATION: Dizziness and hypotension. Time of exam: 8:42 PM Correlation is made with prior chest from 10/16/2018. The heart size is normal. The pulmonary vascularity is unremarkable. The lungs are clear. No infiltrate, effusion or pneumothorax is detected. Impression: No acute cardiopulmonary process is detected. Dictated by: Dictated on workstation # [id number]
[2019-03-29 21:04] LABS: CREATINE KINASE MB 2.7 NG/ML (<6.6)
--- NOTE | 2019-03-29 21:08 | ED General ---
General Chief Complaint: Dizziness/Syncope Stated Complaint: WEAKNESS,DIZZY,DURAN Nursing Triage Note: PT AMB TO ROOM #6 W/O DIFFICULTY. A&OX4. C/O DIZZINES, LIGHT HEADEDNESS, HEADAHCE, DISTAL NECK PAIN, LOW BP (90 SYSTOLIC), NAUSEA, AND MUSCLE FATIGUE. PT REPORTS ON 03/22/19 SHE WAS PRESCRIBED A NEW DIURETIC (METOLAZONE 10MG QDAY). PT REPORTS SINCE 03/22/19 SHE HAS LOST 20LBS. PT REPORTS FOR PAST X3 DAYS SHE HAS BEEN EXPERIENCING SYMTPOMS. REPORTS DECREASE IN URINATION THROUGHOUT THIS DAY (X1 VOID). PT STATES, "I FEEL DEHYDRATED." Nursing Sepsis Screen: No Definite Risk Source of Information: Patient Exam Limitations: No Limitations History of Present Illness Date Seen by Provider: March 29, 2019 Time Seen by Provider: 20:20 Initial Comments PT ARRIVES VIA POV FROM HOME PT STATES SHE WAS STARTED ON A NEW DIURETIC, METOLAZONE, ON 03/22/19 FOR LEG SWELLING--ADDITIONALLY, SHE ALSO HAS BEEN ON LASIX FOR A LONG TIME PT STATES HER LEG SWELLING IS SIGNIFICANTLY BETTER FOR THE LAST 3 DAYS, SHE HAS FELT BAD C/O DIZZINESS C/O GENERALIZED WEAKNESS C/O NAUSEA, NO VOMITING C/O DISCOMFORT TO THE BACK OF HER NECK--STATES THAT STARTED OUT NECK PAIN AFTER SHE SLEPT ON IT WRONG, IS MUCH BETTER AND CAN MOVE HER NECK WITHOUT PROBLEMS, BUT STILL HAS A "DISCOMFORT" --STATES "IT'S NOT A HEADACHE, IT'S JUST THERE", STATES IT GOES AWAY WITH CERTAIN POSITIONS AND WITH PUSHING ON THE AREA STATES SHE HAS LOST 20 LBS IN THE LAST WEEK STATES SHE HAS ONLY URINATED ONCE OR TWICE TODAY C/O A VERY DRY MOUTH--STATES "I DRINK A GALLON OF WATER EVERY HOUR" FOR THE LAST 2-3 DAYS STATES HER BP WAS 90 SYSTOLIC AT HOME TODAY NO CHEST PAIN NO SHORTNESS OF BREATH NO COUGH/CONGESTION AND NO FEVER OR RECENT ILLNESS STATES "I STARTED GOOGLING AND IT FREAKED ME OUT AND I CAME HERE" HAS NOT ATTEMPTED TO CONTACT HER PCP FOR THIS PROBLEM 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: [facility], 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 Allergies and Home Medications Allergies Coded Allergies: ibuprofen (Verified Allergy, Severe, 05/01/16) Home Medications Amlodipine Besylate 2.5 Mg Tablet, 2.5 MG PO DAILY, (Reported) Aspirin 81 Mg Tablet.dr, 81 MG PO DAILY, (Reported) Benzonatate 100 Mg Capsule, 1-2 TAB PO TID Prescribed by: SUNITA SAGASTUME on 10/16/18331 Doxycycline Monohydrate 100 Mg Capsule, 100 MG PO BID Prescribed by: SUNITA SAGASTUME on 10/16/18331 Furosemide 40 Mg Tablet, 40 MG PO DAILY, (Reported) Methylprednisolone 4 Mg Tab.ds.pk, 4 MG PO UD Prescribed by: SUNITA SAGASTUME on 10/16/18332 Multivit-Min/FA/Lycopene/Lut 1 Each Tablet, 1 TAB PO DAILY, (Reported) Omeprazole 20 Mg Capsule.dr, 20 MG PO BID, (Reported) LAST FILLED #60 05-07-18 Patient Home Medication List Home Medication List Reviewed: Yes Review of Systems Review of Systems Constitutional: see HPI; No chills, No diaphoresis; dizziness; No fever; weakness EENTM: no symptoms reported Respiratory: no symptoms reported; No cough, No short of breath Cardiovascular: see HPI; No chest pain, No palpitations, No syncope, No vascular heart diseas Gastrointestinal: see HPI; No abdominal pain, No diarrhea, No loss of appetite ; nausea; No vomiting Genitourinary: see HPI, decreased output Musculoskeletal: see HPI Skin: no symptoms reported Psychiatric/Neurological: No Symptoms Reported; Denies Headache, Denies Numbness, Denies Paresthesia, Denies Seizure, Denies Tingling, Denies Tremors, Denies Weakness Hematologic/Lymphatic: No Symptoms Reported Immunological/Allergic: no symptoms reported Past Vrwcwua-Gzoaqs-Ipzxrl Hx Patient Social History Alcohol Use: Denies Use Recreational Drug Use: No Smoking Status: Former Smoker (1 PPD) Type Used: Cigarettes Former Smoker, Quit: Aug 08, 2007 2nd Hand Smoke Exposure: No Recent Foreign Travel: No Contact w/Someone Who Travel: No Recent Infectious Disease Expo: No Recent Hopitalizations: No Immunizations Up To Date Tetanus Booster (TDap): More than 5yrs Date of Influenza Vaccine: Aug 29, 2013 Seasonal Allergies Seasonal Allergies: No Past Medical History Surgeries: Yes (CARDIAC CATH 06/2011--NO INTERVENTION; EGD) Cardiac, Gallbladder, Tubal Ligation Respiratory: Yes Pneumonia Cardiac: Yes (CARDIAC 06/2011--NO INTERVENTION; LEFT LEG ALWAYS MORE SWOLLEN THAN RIGHT DUE TO PRIOR FRACTURE TO LEFT LEG) Chronic Edema/Swelling, Hypertension Neurological: No : No 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 Disorders: No Female 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 Disorders: 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, 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 Sexually Transmitted Disease: No Genitourinary: No Gastrointestinal: Yes Gastroesophageal Reflux, Hiatal Hernia, Ulcer Musculoskeletal: Yes (LEFT LEG FRACTURE) Chronic Back Pain, Fractures Endocrine: Yes (MORBID OBESITY) HEENT: No Loss of Vision: Denies Hearing Impairment: Denies Cancer: No Psychosocial: Yes Anxiety Integumentary: No Blood Disorders: No Family Medical History Asthma 19 MOTHER Cardiovascular disease 19 FATHER Diabetes mellitus 19 MOTHER G8 BROTHER G8 SISTER Diabetes, Hypertension Physical Exam Vital Signs Vital Signs - First Documented 03/29/19 20:05 Temp 96.9 Pulse 78 Resp 16 B/P (MAP) 137/94 (108) Pulse Ox 99 O2 Delivery Room Air Capillary Refill : Less Than 3 Seconds Height, Weight, BMI Height: 5'8.00" Weight: 372lbs. 8.0oz. [id number]; 59.3 BMI Method:Stated General Appearance: No Apparent Distress, Obese Neck: Full Range of Motion, Normal Inspection, Non Tender, Supple; No Carotid Bruit, No JVD Respiratory: Normal Breath Sounds, No Accessory Muscle Use, No Respiratory Distress Cardiovascular: Regular Rate, Rhythm, No Edema, No JVD, No Murmur, Normal Peripheral Pulses Gastrointestinal: Non Tender, Soft Extremity: Normal Capillary Refill, Normal Inspection, Normal Range of Motion, Non Tender, No Calf Tenderness, Other (LEFT LOWER LEG SLIGHTLY LARGER THAN RIGHT , BUT PT WITH LOOSE SKIN WITH POOR TURGOR TO BILATERAL LOWER LEGS. 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7 4.3-11.0 10^3/uL Red Blood Count 4.89 4.35-5.85 10^6/uL Hemoglobin 14.2 11.5-16.0 G/DL Hematocrit 43 35-52 % Mean Corpuscular Volume 88 80-99 FL Mean Corpuscular Hemoglobin 29 25-34 PG Mean Corpuscular Hemoglobin Concent 33 32-36 G/DL Red Cell Distribution Width 14.1 10.0-14.5 % Platelet Count 339 130-400 10^3/uL Mean Platelet Volume 10.8 H 7.4-10.4 FL Neutrophils (%) (Auto) 49 42-75 % Lymphocytes (%) (Auto) 40 12-44 % Monocytes (%) (Auto) 9 0-12 % Eosinophils (%) (Auto) 3 0-10 % Basophils (%) (Auto) 0 0-10 % Neutrophils # (Auto) 4.7 1.8-7.8 X 10^3 Lymphocytes # (Auto) 3.9 1.0-4.0 X 10^3 Monocytes # (Auto) 0.9 0.0-1.0 X 10^3 Eosinophils # (Auto) 0.3 0.0-0.3 10^3/uL Basophils # (Auto) 0.0 0.0-0.1 10^3/uL Prothrombin Time 14.2 12.2-14.7 SEC INR Comment 1.1 0.8-1.4 Activated Partial Thromboplast Time 33 24-35 SEC Sodium Level 137 135-145 MMOL/L Potassium Level 2.7 L 3.6-5.0 MMOL/L Chloride Level 92 L 98-107 MMOL/L Carbon Dioxide Level 28 21-32 MMOL/L Anion Gap 17 H 5-14 MMOL/L Blood Urea Nitrogen 30 H 7-18 MG/DL Creatinine 1.59 H 0.60-1.30 MG/DL Estimat Glomerular Filtration Rate 41 BUN/Creatinine Ratio 19 Glucose Level 122 H 70-105 MG/DL Calcium Level 10.5 H 8.5-10.1 MG/DL Corrected Calcium 8.5-10.1 MG/DL Magnesium Level 2.1 1.8-2.4 MG/DL Total Bilirubin 0.8 0.1-1.0 MG/DL Aspartate Amino Transf (AST/SGOT) 25 5-34 U/L Alanine Aminotransferase (ALT/SGPT) 26 0-55 U/L Alkaline Phosphatase 93 40-136 U/L Total Creatine Kinase 355 H 29-168 U/L Creatine Kinase MB 2.7 <6.6 NG/ML Troponin I < 0.028 <0.028 NG/ML B-Type Natriuretic Peptide < 10.0 <100.0 PG/ML Total Protein 9.1 H 6.4-8.2 GM/DL Albumin 4.6 H 3.2-4.5 GM/DL TSH [place] Testing 2.25 0.35-4.94 UIU/ML Urine Color YELLOW Urine Clarity CLEAR Urine pH 5 5-9 Urine Specific [place] 1.020 1.016-1.022 Urine Protein 1+ H NEGATIVE Urine Glucose (UA) NEGATIVE NEGATIVE Urine Ketones NEGATIVE NEGATIVE Urine Nitrite NEGATIVE NEGATIVE Urine Bilirubin NEGATIVE NEGATIVE Urine Urobilinogen NORMAL NORMAL MG/DL Urine Leukocyte Esterase 2+ H NEGATIVE Urine RBC (Auto) NEGATIVE NEGATIVE Urine RBC NONE /HPF Urine WBC 5-10 H /HPF Urine Squamous Epithelial Cells 25-50 H /HPF Urine Crystals PRESENT H /LPF Urine Amorphous Sediment FEW KANG URATES H /LPF Urine Bacteria FEW H /HPF Urine Casts NONE /LPF Urine Mucus NEGATIVE /LPF Urine Culture Indicated YES My Orders Orders - SNUITA SAGASTUME DO Ed Iv/Invasive Line Start (03/29/19 20:19) Ekg Tracing (03/29/19 20:19) Monitor-Rhythm Ecg Trace Only (03/29/19 20:19) Orthostatic Vital Signs (Adult (03/29/19 20:19) BNP (03/29/19 20:19) Cbc With Automated Diff (03/29/19 20:19) Comprehensive Metabolic Panel (03/29/19 20:19) Creatine Kinase (03/29/19 20:19) Creatine Kinase Mb (03/29/19 20:19) Magnesium (03/29/19 20:19) Protime With Inr (03/29/19 20:19) Partial Thromboplastin Time (03/29/19 20:19) Thyroid Analyzer (03/29/19 20:19) Troponin I (03/29/19 20:19) Ua Culture If Indicated (03/29/19 20:19) Chest 1 View, Ap/Pa Only (03/29/19 20:19) 1/2 Ns Iv Solution (0.45% Sodium Chlorid (03/29/19 21:15) Potassium Chloride (Tablet) (Klor Con Ta (03/29/19 21:15) Urine Culture (03/29/19 21:29) Medications Given in ED Current Medications Medications Dose Ordered Sig/Ken Route Start Time Stop Time Status Last Admin Dose Admin Potassium Chloride 40 meq ONCE ONCE PO 03/29/19 21:15 03/29/19 21:16 DC 03/29/19 21:12 40 MEQ Vital Signs/I&O 03/29/19 03/29/19 20:05 20:21 Temp 96.9 Pulse 78 73 81 93 Resp 16 B/P (MAP) 137/94 (108) 137/83 (101) 131/89 (103) 145/100 (115) Pulse Ox 99 O2 Delivery Room Air Capillary Refill : Less Than 3 Seconds Blood Pressure Mean: 115 Progress Note : Progress Note UNEVENTFUL ER STAY OFFERED ADMIT AND PT DECLINES ECG Initial ECG Impression Date: March 29, 2019 Initial ECG Impression Time: 20:33 Initial ECG Rate: 74 Initial ECG Rhythm: Normal Sinus Diagnostic Imaging Comments CXR--NO ACUTE PROCESS, PER RADIOLOGIST REPORT @ 2107 Departure Impression Primary Impression: DEHYDRATION DUE TO DIURETIC USE Additional Impressions: Hypokalemia HX OF LEG EDEMA UTI (urinary tract infection) Disposition: 01 HOME, SELF-CARE Condition: Stable Departure-Patient Inst. Referrals: DEION BAILON (Family) Primary Care Physician [facility] (PCP) Primary Care Physician Patient Instructions: Dehydration, Adult (DC), Hypokalemia (DC), Urinary Tract Infection, Adult (DC) Add. Discharge Instructions: LOTS OF FLUIDS HOLD METOLAZONE, CONTINUE LASIX AND YOUR OTHER MEDICATIONS PRESCRIBE FOLLOW UP WITH [facility] IN 1-2 DAYS FOR FURTHER CARE RETURN TO ER IF WORSE All discharge instructions reviewed with patient and/or family. Voiced understanding. Scripts Nitrofurantoin Monohyd/M-Cryst (Macrobid 100 mg Capsule) 100 Mg Capsule 100 MG PO BID, #20 CAP Prov: SUNITA SAGASTUME DO 03/29/19 SUNITA SAGASTUME DO March 29, 2019 21:08
[2019-03-29 21:15] LABS: TSH (THYROID ANALYZER) 2.25 UIU/ML (0.35-4.94)
[2019-03-29] MEDS ORDERED: KCL 10 MEQ TAB (MICRO K) PO ONE (21:15)
[2019-03-29] MEDS ORDERED: 1/2 NS IV SOLUTION 1,000 ML IV SCH (21:15)
[2019-03-29 21:40] LABS: BILIRUBIN,URINE NEGATIVE (NEGATIVE); CLARITY,URINE CLEAR; COLOR,URINE YELLOW; GLUCOSE, URINE (UA) NEGATIVE (NEGATIVE); KETONES,URINE NEGATIVE (NEGATIVE); LEUKOCYTE ESTERASE ,URINE 2+ (NEGATIVE); NITRITE,URINE NEGATIVE (NEGATIVE); PH,URINE 5 (5-9); PROTEIN,URINE 1+ (NEGATIVE); UROBILINOGEN,URINE NORMAL (NORMAL)
[2019-03-29 21:51] LABS: AMORPHOUS SEDIMENT,UR FEW AMOR URATES /LPF; BACTERIA,URINE FEW /HPF; SQUAMOUS EPITHELIAL CELL,UR 25-50 /HPF
[2019-03-29] MEDS ORDERED: NITR-65 PO (21:56)
[2019-03-29 22:18] VITALS: BP 135/62
== END 2019-03-29 22:19 | disposition home or self-care (01) ==
LOC: EDUNIT# 19:47 → ER 19:48
DX: E86.0 Dehydration (principal); T50.2X5A Adverse effect of carbonic-anhydrase inhibitors, benzothiadiazides and other diuretics, initial encounter; E87.6 Hypokalemia; N39.0 Urinary tract infection, site not specified; I10 Essential (primary) hypertension; K21.9 Gastro-esophageal reflux disease without esophagitis; E66.01 Morbid (severe) obesity due to excess calories; F41.9 Anxiety disorder, unspecified; Z87.19 Personal history of other diseases of the digestive system; Z88.6 Allergy status to analgesic agent; Z79.82 Long term (current) use of aspirin; Z82.49 Family history of ischemic heart disease and other diseases of the circulatory system; Z68.43 Body mass index [BMI] 50.0-59.9, adult; Z79.52 Long term (current) use of systemic steroids; Z87.891 Personal history of nicotine dependence; Z98.890 Other specified postprocedural states; Z98.51 Tubal ligation status; Z95.9 Presence of cardiac and vascular implant and graft, unspecified; Z87.01 Personal history of pneumonia (recurrent)
CPT/HCPCS: 36415; 71045; 80053; 81000; 82550; 82553; 83735; 83880; 84443; 84484; 85025; 85610; 85730; 87088; 93041

== ENCOUNTER → 2019-04-18 | Outpatient (CLI) | payer BC ==
[~2019-04-18] MED LIST changes: +NITR-65 PO
--- NOTE | 2019-04-18 16:48 | Diagnostic Imaging Report ---
INDICATION: Routine screening. Comparison is made with prior mammogram from 11/12/2016 and 11/13/2013. 2-D and 3-D bilateral screening mammography was performed with a Computer Aided Detection (CAD) system. FINDINGS: Scattered fibroglandular densities are identified bilaterally. The parenchymal pattern is stable. No mass or malignant-appearing microcalcifications are seen. Axillae are unremarkable. IMPRESSION: No mammographic features suspicious for malignancy are identified. ACR BI-RADS Category 1: Negative. Result letter will be mailed to the patient. Note: At least 10% of breast cancer is not imaged by mammography. Dictated by: Dictated on workstation # [id number]
== END ==
LOC: RAD 14:12
PROVIDERS: ATTEND Nurse Practitioner Community Health
DX: Z12.31 Encounter for screening mammogram for malignant neoplasm of breast (principal)
CPT/HCPCS: 77067

== ENCOUNTER 2020-09-11 21:54 | Emergency (ER) | payer SELFPAY ==
[~2020-09-11] VITALS: Ht 172 cm; Wt 170.5 kg
[~2020-09-11 21:54] MED LIST changes: -OMEP20CA12 PO; +OMEP20CA18 PO
[2020-09-11 22:17] VITALS: BP_SYST 136; BP_SYST 143; BP_SYST 145; BP_DIAS 89; BP_DIAS 96; BP_DIAS 97
[2020-09-11 22:26] LABS: BILIRUBIN,URINE NEGATIVE (NEGATIVE); CLARITY,URINE CLOUDY; GLUCOSE, URINE (UA) NEGATIVE (NEGATIVE); KETONES,URINE NEGATIVE (NEGATIVE); LEUKOCYTE ESTERASE ,URINE 2+ (NEGATIVE); NITRITE,URINE NEGATIVE (NEGATIVE); PH,URINE 6.5 (5-9); PROTEIN,URINE TRACE (NEGATIVE)
--- NOTE | 2020-09-11 22:26 | ED General ---
General Chief Complaint: Dizziness/Syncope Stated Complaint: DRY MOUTH/FEVER/DIZZINESS/WEAKNESS/COVID + Nursing Triage Note: TO ED VIA POV AND AMBULATORY TO ROOM 10 PT IS COVID POSITIVE. PT STATES SYMPTOMS NO DIFFERENT THAN WHEN SYMPTOMS STARTED BUT TODAY WAS GOING TO BATHROOM AND FELT DIZZY SO SHE THOUGHT SHE SHOULD COME TO THE ER. Nursing Sepsis Screen: Possible Severe Sepsis Risk Source of Information: Patient Exam Limitations: No Limitations History of Present Illness Date Seen by Provider: Sep 11, 2020 Time Seen by Provider: 22:00 Initial Comments Patient is a 55-year-old female who presents to the emergency room today with a chief complaint of feeling dizzy and lightheaded. Patient states she had onset of symptoms in the last 24 hours. Patient states that she was diagnosed with c oronavirus 1 week ago. 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 She states she does not have any sense of smell and she is slightly congested and has a mild cough. Patient states that she has felt so dizzy this evening that she thought she should come to the emergency room to be checked out. Her only other symptom is some burning with urination that started this morning. She denies any shortness of breath, headache, sore throat, GI symptoms. Patient has a history of high blood pressure and she has taken her evening medications tonight. She states she is had a normal appetite normal urine output. No sick contacts at home. All other review of systems reviewed negative except as stated. Timing/Duration: 4-6 Hours Severity: Moderate Modifying Factors: improves with Movement Associated Systoms: Cough, Fever/Chills (Subjective); No Headaches, No Loss of Appetite, No Malaise, No Nausea/Vomiting, No Shortness of Air, No Syncope, No W eakness Allergies and Home Medications Allergies Coded Allergies: ibuprofen (Verified Allergy, Severe, 05/01/16) Home Medications Amlodipine Besylate 2.5 Mg Tablet, 2.5 MG PO DAILY, (Reported) Aspirin 81 Mg Tablet.dr, 81 MG PO DAILY, (Reported) Benzonatate 100 Mg Capsule, 1-2 TAB PO TID Prescribed by: SUNITA SAGASTUME on 10/16/18331 Doxycycline Monohydrate 100 Mg Capsule, 100 MG PO BID Prescribed by: SUNITA SAGASTUME on 10/16/18331 Furosemide 40 Mg Tablet, 40 MG PO DAILY, (Reported) Methylprednisolone 4 Mg Tab.ds.pk, 4 MG PO UD Prescribed by: SUNITA SAGASTUME on 10/16/18 0333 Multivit-Min/FA/Lycopene/Lut 1 Each Tablet, 1 TAB PO DAILY, (Reported) Nitrofurantoin Monohyd/M-Cryst 100 Mg Capsule, 100 MG PO BID Prescribed by: SUNITA SAGASTUME on 03/29/192155 Omeprazole 20 Mg Capsule.dr, 20 MG PO BID, (Reported) LAST FILLED #60 05-07-18 Patient Home Medication List Home Medication List Reviewed: Yes Review of Systems Review of Systems Constitutional: dizziness (and lightheaded) EENTM: nose congestion (mild); No ear pain, No hoarseness, No throat pain Respiratory: cough (mild) Cardiovascular: no symptoms reported Gastrointestinal: no symptoms reported Genitourinary: dysuria Musculoskeletal: no symptoms reported Psychiatric/Neurological: No Symptoms Reported Past Mzmmqsp-Ajiywl-Oihxdz Hx Patient Social History Alcohol Use: Denies Use Recreational Drug Use: No Smoking Status: Former Smoker Type Used: Cigarettes Former Smoker, Quit: Aug 08, 2007 2nd Hand Smoke Exposure: No Recent Foreign Travel: No Contact w/Someone Who Travel: No Recent Infectious Disease Expo: No Recent Hopitalizations: No Physical Abuse: No Sexual Abuse: No Mistreated: No Fear: No Immunizations Up To Date Tetanus Booster (TDap): More than 5yrs Date of Influenza Vaccine: Aug 29, 2013 Seasonal Allergies Seasonal Allergies: No Past Medical History Surgeries: Yes (CARDIAC CATH 06/2011--NO INTERVENTION; EGD) Cardiac, Gallbladder, Tubal Ligation Respiratory: Yes Pneumonia Cardiac: Yes Chronic Edema/Swelling, Hypertension Neurological: No 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 Disorders: No Female 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 Disorders: Denies 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, 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 Sexually Transmitted Disease: No Genitourinary: No Gastrointestinal: Yes Gastroesophageal Reflux, Hiatal Hernia, Ulcer Musculoskeletal: Yes (LEFT LEG FRACTURE) Chronic Back Pain, Fractures Endocrine: Yes (MORBID OBESITY) HEENT: No Loss of Vision: Denies Hearing Impairment: Denies Cancer: No Psychosocial: Yes Anxiety Integumentary: No Blood Disorders: No Family Medical History Asthma 19 MOTHER Cardiovascular disease 19 FATHER Diabetes mellitus 19 MOTHER G8 BROTHER G8 SISTER Diabetes, Hypertension Physical Exam Vital Signs Vital Signs - First Documented 09/11/20 09/11/20 09/11/20 22:07 22:17 22:50 Temp 37.0 Pulse 92 Resp 18 B/P (MAP) 143/89 (107) 136/96 (109) 145/97 (113) Pulse Ox 100 O2 Delivery Room Air Capillary Refill : Less Than 3 Seconds Height, Weight, BMI Height: 5'8.00" Weight: 372lbs. 8.0oz. [id number]; 57.00 BMI Method:Stated General Appearance: No Apparent Distress, WD/WN HEENT: PERRL/EOMI Neck: Full Range of Motion, Normal Inspection Respiratory: Chest Non Tender, Lungs Clear, Normal Breath Sounds Cardiovascular: Regular Rate, Rhythm, No Edema Gastrointestinal: Normal Bowel Sounds Extremity: Normal Capillary Refill, Normal Inspection, Normal Range of Motion Neurologic/Psychiatric: Alert, Oriented x3, No Motor/Sensory Deficits, Normal Mood/Affect Progress/Results/Core Measures Suspected Sepsis Recent Fever Within 48 Hours: Yes Infection Criteria Present: Documented Infection New/Unexplained Altered Menta: No Sepsis Screen: Possible Severe Sepsis Risk SIRS Temperature: Pulse: 97 Respiratory Rate: 18 Blood Pressure 145 /97 Mean: 113 Results/Orders Lab Results Laboratory Tests Test 09/11/20 22:20 Range/Units Urine Color YELLOW Urine Clarity CLOUDY Urine pH 6.5 5-9 Urine Specific [place] 1.015 L 1.016-1.022 Urine Protein TRACE H NEGATIVE Urine Glucose (UA) NEGATIVE NEGATIVE Urine Ketones NEGATIVE NEGATIVE Urine Nitrite NEGATIVE NEGATIVE Urine Bilirubin NEGATIVE NEGATIVE Urine Urobilinogen 1.0 < = 1.0 MG/DL Urine Leukocyte Esterase 2+ H NEGATIVE Urine RBC (Auto) NEGATIVE NEGATIVE Urine RBC NONE /HPF Urine WBC 2-5 /HPF Urine Squamous Epithelial Cells >50 H /HPF Urine Crystals NONE /LPF Urine Bacteria MODERATE H /HPF Urine Casts NONE /LPF Urine Mucus NEGATIVE /LPF Urine Culture Indicated YES My Orders Orders - BYRON BALDERAS MD Ua Culture If Indicated (09/11/20 22:19) Urine Culture (09/11/20 22:20) Covid-19 External Lab Results (09/11/20 22:56) Isolation Central Supply Req (09/11/20 22:56) Vital Signs/I&O 09/11/20 09/11/20 09/11/20 22:07 22:17 22:50 Temp 37.0 37.0 Pulse 92 85 97 88 97 Resp 18 18 B/P (MAP) 143/89 (107) 145/97 (113) 136/96 (109) 145/97 (113) Pulse Ox 100 O2 Delivery Room Air Room Air Capillary Refill : Less Than 3 Seconds Blood Pressure Mean: 113 Progress Note : Time: 22:40 Progress Note patient seen and examined by me. 55 you COVID positive. with dizziness. no other symptoms. SHe states she just felt worse this evening and was concerned that she might be dehydrated. Stated that she has urinated three times today - and has had some painful urination that started this morning. She denies frequency or urgency. UA obtained and is grossly contaminated - but flagged for culture. At this point will hold off on antibiotics as I believe that this will be normal hunter (secondary to greater than 50 squamous epithelial cells per hpf). Patient has no other complaints of worsening illness. She is NOT hypoxic on Room air (sats 99%). Patient clinically looks very well. Will discharge her home with continued supportive care. Follow up as needed with her PCP and to continue her quarantine. She has been given these instructions, verbalizes understanding and is stable for discharge. Departure Impression Primary Impression: Dizziness Additional Impression: 2019 novel coronavirus disease (COVID-19) Disposition: 01 HOME, SELF-CARE Condition: Stable Departure-Patient Inst. Referrals: [facility] [place] (PCP) Primary Care Physician DEION BAILON (Family) Primary Care Physician Patient Instructions: Dizziness, Nonvertigo, (DC), Coronavirus Disease 2019 (COVID-19) Overview Add. Discharge Instructions: Drink plenty of fluids to stay well hydrated while you are sick. Continue to wear your mask and follow your quarantine orders. Return to the Emergency Room for re-evaluation if you have any worsening, shortness of breath, severe/worsening symptoms. Follow up with your primary care doctor. All discharge instructions reviewed with patient and/or family. Voiced understanding. BYRON BALDERAS MD Sep 11, 2020 22:26
[2020-09-11 22:29] LABS: COLOR,URINE YELLOW
[2020-09-11 22:31] LABS: BACTERIA,URINE MODERATE /HPF; SQUAMOUS EPITHELIAL CELL,UR >50 /HPF
[2020-09-11 22:50] VITALS: BP 145/97
== END 2020-09-11 22:50 | disposition home or self-care (01) ==
LOC: EDUNIT# 21:54 → ER 21:57
DX: R42 Dizziness and giddiness (principal); U07.1 COVID-19; I10 Essential (primary) hypertension; K21.9 Gastro-esophageal reflux disease without esophagitis; E66.01 Morbid (severe) obesity due to excess calories; Z82.49 Family history of ischemic heart disease and other diseases of the circulatory system; Z83.3 Family history of diabetes mellitus; Z87.891 Personal history of nicotine dependence; Z68.43 Body mass index [BMI] 50.0-59.9, adult; Z79.52 Long term (current) use of systemic steroids; Z79.82 Long term (current) use of aspirin; Z88.6 Allergy status to analgesic agent
CPT/HCPCS: 81000; 87088; 99283

== ENCOUNTER → 2021-02-19 | Outpatient (CLI) | payer OTHER ==
--- NOTE | 2021-02-21 08:56 | Diagnostic Imaging Report ---
EXAM: Digital mammogram bilateral screening This study was compared to the prior exams of 04/18/2019 and 11/12/2016. At this time there are no current complaints. The current study was also evaluated with a Computer Aided Detection (CAD) system. FINDINGS: There is a mild amount of fibroglandular tissue present in both breasts, similar to the prior exam. No primary or secondary sign of malignancy is noted. IMPRESSION: 1. There is no radiographic evidence for malignancy. ACR category 1 ACR BI-RADS Category 1: Negative. Result letter will be mailed to the patient. Note: At least 10% of breast cancer is not imaged by mammography. Dictated on workstation # [id number]
== END ==
LOC: RAD 14:24
PROVIDERS: ATTEND Nurse Practitioner Family
DX: Z12.31 Encounter for screening mammogram for malignant neoplasm of breast (principal); Z76.89 Persons encountering health services in other specified circumstances
CPT/HCPCS: 77063; 77067

== ENCOUNTER → 2021-02-21 | Outpatient (CLI) | payer SELFPAY | LOC: CARD 15:00 | PROVIDERS: ATTEND Nurse Practitioner Family | DX: I11.9 Hypertensive heart disease without heart failure (principal); R60.0 Localized edema | CPT/HCPCS: 93306 ==

== ENCOUNTER 2022-01-18 16:36 | Emergency (ER) | payer SELFPAY ==
[~2022-01-18] VITALS: Ht 172.7 cm; Wt 179.6 kg
[~2022-01-18 16:36] MED LIST changes: +DOXY-311 PO; -DOXY100C42 PO
[2022-01-18] MEDS ORDERED: ASPIRIN 81 MG CHEW (CHILDREN'S ASA) PO ONE (17:00)
[2022-01-18] MEDS ORDERED: NITROGLYCERIN 0.4 MG SL TABS BTL 25'S SL PRN (17:00)
--- NOTE | 2022-01-18 17:06 | ED Chest Pain ---
General Stated Complaint: R SHOULDER PAIN Source: patient Exam Limitations: no limitations (BINTA ENGLE) History of Present Illness Date Seen by Provider: Jan 18, 2022 Time Seen by Provider: 16:55 Initial Comments Patient to the ER by private conveyance with chief complaint 2 days has been having some right shoulder pain, tingling numbness feeling in her left fingertips, bilateral neck stiffness and substernal anterior chest discomfort/pain 7 out of 10. No nausea fevers chills cough shortness of air. She had a negative Covid swab for work on Wednesday, 2 days ago. No history of heart disease lung disease. She does not smoke. She does have hypertension and takes her blood pressure medications. She is on hydrochlorothiazide. She denies diabetes or hyperlipidemia. She takes aspirin daily (BINTA ENGLE) Allergies and Home Medications Allergies Coded Allergies: ibuprofen (Verified Allergy, Severe, 05/01/16) Patient Home Medication List Home Medication List Reviewed: Yes (BINTA ENGLE) Amlodipine Besylate (Amlodipine Besylate) 2.5 Mg Tablet, 2.5 MG PO DAILY, (Reported) Entered as Reported by: CÉSAR CANELA on 04/23/16 1526 Aspirin (Aspir 81) 81 Mg Tablet.dr, 81 MG PO DAILY, (Reported) Entered as Reported by: CÉSAR CANELA on 04/23/16 1526 Benzonatate (Tessalon Perles) 100 Mg Capsule, 1-2 TAB PO TID Prescribed by: SUNITA SAGASTUME on 10/16/18 033 Doxycycline Monohydrate (Doxycycline Monohydrate) 100 Mg Capsule, 100 MG PO BID Prescribed by: SUNITA SAGASTUME on 10/16/18331 Furosemide (Furosemide) 40 Mg Tablet, 40 MG PO DAILY, (Reported) Entered as Reported by: SANTIAGO SCHNEIDER on 07/05/18 100 Methylprednisolone (Medrol) 4 Mg Tab.ds.pk, 4 MG PO UD Prescribed by: SUNITA SAGASTUME on 10/16/18332 Multivit-Min/FA/Lycopene/Lut (Centrum Silver Tablet) 1 Each Tablet, 1 TAB PO DAILY, (Reported) Entered as Reported by: SANTIAGO SCHNEIDER on 07/05/18 100 Nitrofurantoin Monohyd/M-Cryst (Macrobid 100 mg Capsule) 100 Mg Capsule, 100 MG PO BID Prescribed by: SUNITA SAGASTUME on 03/29/192155 Omeprazole (Omeprazole) 20 Mg Capsule.dr, 20 MG PO BID, (Reported) Entered as Reported by: TAN IVERSON on 08/28/17 9025 Review of Systems Review of Systems Constitutional: No chills, No diaphoresis, No fever, No malaise EENTM: No Blurred Vision, No Double Vision Respiratory: Denies Cough, Denies Shortness of Air Cardiovascular: Chest Pain; Denies Edema, Denies Lightheadedness Gastrointestinal: Denies Abdominal Pain, Denies Constipated, Denies Diarrhea, Denies Nausea Genitourinary: Denies Burning, Denies Discharge Musculoskeletal: No back pain, No joint pain Skin: No pruritus, No rash Psychiatric/Neurological: Denies Anxiety, Denies Depressed (BINTA ENGLE) All Other Systems Reviewed Negative Unless Noted: Yes (BINTA ENGLE) Past Ogehpez-Jjbalh-Rxhlda Hx Patient Social History Tobacco Use?: No Use of E-Cig and/or Vaping dev: No Substance use?: No (BINTA ENGLE) Immunizations Up To Date Tetanus Booster (TDap): More than 5yrs (BINTA ENGLE) Seasonal Allergies Seasonal Allergies: No (BINTA ENGLE) Past Medical History Surgeries: Yes (CARDIAC CATH 06/2011--NO INTERVENTION; EGD) Cardiac, Gallbladder, Tubal Ligation Respiratory: Yes Pneumonia Cardiac: Yes Chronic Edema/Swelling, Hypertension Neurological: No 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 Disorders: No Female 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 Disorders: Denies 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 History: Tubal Ligation, Menopausal Sexually Transmitted Disease: No Genitourinary: No Gastrointestinal: Yes Gastroesophageal Reflux, Hiatal Hernia, Ulcer Musculoskeletal: Yes (LEFT LEG FRACTURE) Chronic Back Pain, Fractures Endocrine: Yes (MORBID OBESITY) HEENT: No Loss of Vision: Denies Hearing Impairment: Denies Cancer: No Psychosocial: Yes Anxiety Integumentary: No Blood Disorders: No (BINTA ENGLE) Family Medical History Asthma 19 MOTHER Cardiovascular disease 19 FATHER Diabetes mellitus 19 MOTHER G8 BROTHER G8 SISTER Diabetes, Hypertension (BINTA ENGLE) Physical Exam Vital Signs Vital Signs - First Documented 01/18/22 16:49 Temp 36.7 Pulse 70 Resp 22 B/P (MAP) 183/92 (122) Pulse Ox 98 O2 Delivery Room Air (TANIKA,SUNITA K DO) Vital Signs Capillary Refill : (BINTA ENGLE) Height, Weight, BMI Height: 5'8.00" Weight: 372lbs. 8.0oz. 168.525529dg; 57.00 BMI Method:Stated General Appearance: No Apparent Distress, Obese HEENT: PERRL/EOMI, Pharynx Normal, Moist Mucous Membranes Neck: Full Range of Motion, Normal Inspection Respiratory: Lungs Clear, Normal Breath Sounds, No Accessory Muscle Use, No Respiratory Distress Cardiovascular: Regular Rate, Rhythm, No Edema, Normal Peripheral Pulses Gastrointestinal: Normal Bowel Sounds, Non Tender, Soft Extremity: Normal Capillary Refill, Normal Inspection, No Pedal Edema Neurologic/Psychiatric: Alert, Oriented x3 Skin: Normal Color, Warm/Dry (BINTA ENGLE) Progress/Results/Core Measures Results/Orders Lab Results Laboratory Tests Test 01/18/22 16:58 01/18/22 19:50 Range/Units White Blood Count 9.5 4.3-11.0 10^3/uL Red Blood Count 4.45 3.80-5.11 10^6/uL Hemoglobin 13.5 11.5-16.0 g/dL Hematocrit 42 35-52 % Mean Corpuscular Volume 93 80-99 fL Mean Corpuscular Hemoglobin 30 25-34 pg Mean Corpuscular Hemoglobin Concent 33 32-36 g/dL Red Cell Distribution Width 14.3 10.0-14.5 % Platelet Count 365 130-400 10^3/uL Mean Platelet Volume 10.6 9.0-12.2 fL Immature Granulocyte % (Auto) 0 % Neutrophils (%) (Auto) 44 42-75 % Lymphocytes (%) (Auto) 42 12-44 % Monocytes (%) (Auto) 7 0-12 % Eosinophils (%) (Auto) 7 0-10 % Basophils (%) (Auto) 0 0-10 % Neutrophils # (Auto) 4.1 1.8-7.8 10^3/uL Lymphocytes # (Auto) 4.0 1.0-4.0 10^3/uL Monocytes # (Auto) 0.6 0.0-1.0 10^3/uL Eosinophils # (Auto) 0.7 H 0.0-0.3 10^3/uL Basophils # (Auto) 0.0 0.0-0.1 10^3/uL Immature Granulocyte # (Auto) 0.0 0.0-0.1 10^3/uL Prothrombin Time 14.5 12.2-14.7 SEC INR Comment 1.1 0.8-1.4 Activated Partial Thromboplast Time 32 24-35 SEC Sodium Level 140 135-145 MMOL/L Potassium Level 3.4 L 3.6-5.0 MMOL/L Chloride Level 102 98-107 MMOL/L Carbon Dioxide Level 25 21-32 MMOL/L Anion Gap 13 5-14 MMOL/L Blood Urea Nitrogen 16 7-18 MG/DL Creatinine 1.03 0.60-1.30 MG/DL Estimat Glomerular Filtration Rate 64 BUN/Creatinine Ratio 16 Glucose Level 106 H 70-105 MG/DL Calcium Level 9.4 8.5-10.1 MG/DL Corrected Calcium 9.6 8.5-10.1 MG/DL Magnesium Level 1.9 1.6-2.4 MG/DL Total Bilirubin 0.5 0.1-1.0 MG/DL Aspartate Amino Transf (AST/SGOT) 23 5-34 U/L Alanine Aminotransferase (ALT/SGPT) 21 0-55 U/L Alkaline Phosphatase 82 40-136 U/L Myoglobin 59.5 10.0-92.0 NG/ML Troponin I < 0.028 < 0.028 <0.028 NG/ML B-Type Natriuretic Peptide < 10.0 <100.0 PG/ML Total Protein 8.1 6.4-8.2 GM/DL Albumin 3.8 3.2-4.5 GM/DL (TANIKASUNITA Zara LORENZO) My Orders Orders - TANIKASUNITA K DO Ct Angio Chest W (01/18/22 18:00) Iohexol Injection (Omnipaque 350 Mg/Ml 1 (01/18/22 18:15) Received Contrast (Hold Metformin- Contr (01/18/22 18:15) Ns (Ivpb) (Sodium Chloride 0.9% Ivpb Bag (01/18/22 18:15) Ekg Tracing (01/18/22 19:46) Troponin I [place] (01/18/22 19:46) (TANIKASUNITA Zara LORENZO) Medications Given in ED Current Medications Medications Dose Ordered Sig/Ken Route Start Time Stop Time Status Last Admin Dose Admin Aspirin 324 mg ONCE ONCE PO 01/18/22 17:00 01/18/22 17:01 DC 01/18/22 17:09 324 MG Iohexol 100 ml ONCE ONCE IV 01/18/22 18:15 01/18/22 18:16 DC 01/18/22 18:25 88 ML Nitroglycerin 0.4 mg UD PRN SL 01/18/22 17:00 01/18/22 17:11 0.4 MG Sodium Chloride 100 ml ONCE ONCE IV 01/18/22 18:15 01/18/22 18:16 DC 01/18/22 18:25 80 ML (SUNITA SAGASTUME DO) Vital Signs/I&O 01/18/22 16:49 Temp 36.7 Pulse 70 Resp 22 B/P (MAP) 183/92 (122) Pulse Ox 98 O2 Delivery Room Air (SUNITA SAGASTUME DO) Progress Progress Note #1: Time: 17:04 Progress Note 2 days of nonreproducible chest pain. She has risk factors of obesity, hypertension. If he has a negative troponin and her heart score is 2 points. Since her pain is been going on for 2 days we will not repeat a delta troponin. Suspicious she may have a viral syndrome or just some musculoskeletal aches. We will start with a trial of nitroglycerin since she has an elevated blood pressure to see if she has hypertensive urgency. Just with waiting her blood pressure went from 170s down to 160/90. If her troponin is negative then we will give her a dose of Toradol and follow-up with primary care. Progress Note #2: Time: 17:20 Progress Note Chest pain gone after single dose of nitroglycerin. Still having some discomfort in her shoulders. (BINTA ENGLE) Progress Note : Progress Note 1800--ASSUMED CARE FROM DR. ENGLE, LAB AND CXR RESULTS PENDING. PT IS NOT HAVING ANY CHEST PAIN. ONLY C/O PAIN TO RIGHT TRAPEZIUS MUSCLE AREA. NO OTHER COMPLAINTS AT THIS TIME. (SUNITA SAGASTUME DO) Initial ECG Impression Date: Jan 18, 2022 Initial ECG Impression Time: 17:01 Initial ECG Rate: 69 Initial ECG Rhythm: Normal Sinus Initial ECG Intervals: Normal Initial ECG Impression: Normal Comment Normal sinus rhythm without clinically relevant changes. (BINTA ENGLE) Diagnostic Imaging Diagonstic Imaging: Xray Plain Films/CT/US/NM/MRI: chest Comments [facility] [place] [place] NAME: DEION ETIENNE [facility] REC#: [id number] PT STATUS: REG ER : 1965 PHYSICIAN: BINTA ENGLE MD ADMIT DATE: 01/18/22/ER Signed Date of Exam:01/18/22 CHEST 1 VIEW, AP/PA ONLY INDICATION: Chest pain. Tightness in the chest. Shortness of breath. COMPARISON: Prior study from March 29, 2019. FINDINGS: There are subtle interstitial opacities present at the right lung base which may reflect early developing pneumonia or atelectasis. The lungs otherwise appear clear. There is no dense alveolar consolidation. There is no large effusion. There is no pneumothorax. Heart size is appropriate. Pulmonary vascularity appears normal without current edema or failure. IMPRESSION: Subtle interstitial opacities at the right base may reflect early interstitial pneumonia or simply atelectasis. The lungs otherwise appear clear. There are no current findings of edema or failure. Dictated by: Dictated on workstation # [id number] Dict: 01/18/22 1746 Trans: 01/18/22 175 [facility] [id number] Interpreted by: PRASANNA HERNANDEZ MD Electronically signed by: PRASANNA HERNANDEZ MD 01/18/221749 Reviewed: Reviewed by Az Diagonstic Imaging: CT (a) Plain Films/CT/US/NM/MRI: chest Comments [facility] [place], [place] NAME: DEION ETIENNE [facility] REC#: [id number] PT STATUS: REG ER : 1965 PHYSICIAN: SUNITA SAGASTUME DO ADMIT DATE: 01/18/22/ER Signed Date of Exam:01/18/22 CT ANGIO CHEST W PROCEDURE: CT angiography of the chest with contrast. TECHNIQUE: Multiple contiguous axial images were obtained through the chest after uneventful bolus administration of intravenous contrast. 3D reconstructed CTA MIP acquisitions were also performed. Auto Exposure Controls were utilized during the CT exam to meet ALARA standards for radiation dose reduction. INDICATION: Chest tightness and shortness of breath. Right neck pain. Back pain. FINDINGS: There are no CT angiographic findings of a filling defect within the pulmonary arteries to suggest pulmonary embolism. There is no evidence of right ventricular strain. Thoracic aorta is normal in caliber without dissection or aneurysm. There is no pericardial collection. There is a lobulated nodule within the medial aspect of the right upper lobe. This is unchanged from prior 2018 examination and measures 17 x 11 mm. The lungs are otherwise clear. There is no effusion. There is no pneumothorax. No new or suspicious pulmonary nodule or mass evident. There are no findings of pathologic enlargement of mediastinal, hilar or axillary lymph nodes. There are small morphologically normal lymph nodes within the axilla, bilaterally. The upper abdomen demonstrates cholecystectomy changes and a right renal cyst but no acute process. There is no acute or suspicious osseous abnormality within the thorax. IMPRESSION: 1. No CT angiographic evidence of pulmonary embolism or right ventricular strain. 2. No acute aortic syndrome. 3. Stable lobulated nodule within the right upper lobe. No new or suspicious pulmonary nodule or mass. 4. No findings of pneumonia or edema. 5. No pathologic adenopathy. 6. No acute osseous abnormality. Dictated by: Dictated on workstation # [id number] Dict: 01/18/221829 Trans: 01/18/221838 [facility] [id number] Interpreted by: PRASANNA HERNANDEZ MD Electronically signed by: PRASANNA HERNANDEZ MD 01/18/221838 Reviewed: Reviewed by Me (BINTA ENGLE) Comments CXR--PER RADIOLOGIST REPORT AT 1800 FINDINGS: There are subtle interstitial opacities present at the right lung base which may reflect early developing pneumonia or atelectasis. The lungs otherwise appear clear. There is no dense alveolar consolidation. There is no large effusion. There is no pneumothorax. Heart size is appropriate. Pulmonary vascularity appears normal without current edema or failure. IMPRESSION: Subtle interstitial opacities at the right base may reflect early interstitial pneumonia or simply atelectasis. The lungs otherwise appear clear. There are no current findings of edema or failure. (SUNITA SAGASTUME DO) Departure Impression Primary Impression: Chest pain Qualified Codes: R07.9 - Chest pain, unspecified Disposition: HOME, SELF-CARE Condition: Improved Departure-Patient Inst. Decision time for Depature: 20:30 (SUNITA SAGASTUME DO) Referrals: [facility] (PCP) Primary Care Physician DEION BAILON (Family) Primary Care Physician Patient Instructions: Chest Pain, Adult ED Add. Discharge Instructions: HOME, REST LOTS OF CLEAR LIQUIDS TYLENOL NEEDED FOR PAIN FOLLOW UP WITH YOUR DR IN 1-2 DAYS FOR FURTHER CARE, RETURN TO ER IF WORSE BINTA ENGLE Jan 18, 2022 17:06 SUNITA SAGASTUME DO Jan 18, 2022 18:07
[2022-01-18 17:18] LABS: BASOPHILS % (AUTO) 0 % (0-10); EOSINOPHILS # (AUTO) 0.7 10^3/uL (0.0-0.3); EOSINOPHILS % (AUTO) 7 % (0-10); HEMATOCRIT 42 % (35-52); HEMOGLOBIN 13.5 g/dL (11.5-16.0); LYMPHOCYTES % (AUTO) 42 % (12-44); MEAN CORPUSCULAR HEMOGLOBIN 30 pg (25-34); MEAN CORPUSCULAR HGB CONC 33 g/dL (32-36); MEAN CORPUSCULAR VOLUME 93 fL (80-99); MEAN PLATELET VOLUME 10.6 fL (9.0-12.2); MONOCYTES # (AUTO) 0.6 10^3/uL (0.0-1.0); MONOCYTES % (AUTO) 7 % (0-12); NEUTROPHILS # (AUTO) 4.1 10^3/uL (1.8-7.8); NEUTROPHILS % (AUTO) 44 % (42-75); PLATELET COUNT 365 10^3/uL (130-400); WHITE BLOOD COUNT 9.5 10^3/uL (4.3-11.0)
[2022-01-18 17:28] LABS: ALBUMIN 3.8 GM/DL (3.2-4.5); POTASSIUM 3.4 MMOL/L (3.6-5.0)
[2022-01-18 17:29] LABS: CALCIUM 9.4 MG/DL (8.5-10.1)
[2022-01-18 17:30] LABS: TOTAL PROTEIN 8.1 GM/DL (6.4-8.2)
[2022-01-18 17:31] LABS: INR 1.1 (0.8-1.4); PROTHROMBIN TIME PATIENT 14.5 SEC (12.2-14.7)
[2022-01-18 17:32] LABS: BILIRUBIN,TOTAL 0.5 MG/DL (0.1-1.0)
[2022-01-18 17:34] LABS: CREATININE SERUM 1.03 MG/DL (0.60-1.30)
[2022-01-18 17:37] LABS: MAGNESIUM 1.9 MG/DL (1.6-2.4)
--- NOTE | 2022-01-18 17:49 | Diagnostic Imaging Report ---
INDICATION: Chest pain. Tightness in the chest. Shortness of breath. COMPARISON: Prior study from March 29, 2019. FINDINGS: There are subtle interstitial opacities present at the right lung base which may reflect early developing pneumonia or atelectasis. The lungs otherwise appear clear. There is no dense alveolar consolidation. There is no large effusion. There is no pneumothorax. Heart size is appropriate. Pulmonary vascularity appears normal without current edema or failure. IMPRESSION: Subtle interstitial opacities at the right base may reflect early interstitial pneumonia or simply atelectasis. The lungs otherwise appear clear. There are no current findings of edema or failure. Dictated by: Dictated on workstation # [id number]
[2022-01-18] MEDS ORDERED: HOLD METFORMIN - RECEIVED CONTRAST 20 ML VIAL IV SCH (18:15)
[2022-01-18] MEDS ORDERED: NS 100 ML (IVPB) BAG IV ONE (18:15)
[2022-01-18] MEDS ORDERED: IOHEXOL 350 MG/ML 100 ML (OMNIPAQUE 350) VIAL IV ONE (18:15)
--- NOTE | 2022-01-18 18:40 | Diagnostic Imaging Report ---
PROCEDURE: CT angiography of the chest with contrast. TECHNIQUE: Multiple contiguous axial images were obtained through the chest after uneventful bolus administration of intravenous contrast. 3D reconstructed CTA MIP acquisitions were also performed. Auto Exposure Controls were utilized during the CT exam to meet ALARA standards for radiation dose reduction. INDICATION: Chest tightness and shortness of breath. Right neck pain. Back pain. FINDINGS: There are no CT angiographic findings of a filling defect within the pulmonary arteries to suggest pulmonary embolism. There is no evidence of right ventricular strain. Thoracic aorta is normal in caliber without dissection or aneurysm. There is no pericardial collection. There is a lobulated nodule within the medial aspect of the right upper lobe. This is unchanged from prior 2018 examination and measures 17 x 11 mm. The lungs are otherwise clear. There is no effusion. There is no pneumothorax. No new or suspicious pulmonary nodule or mass evident. There are no findings of pathologic enlargement of mediastinal, hilar or axillary lymph nodes. There are small morphologically normal lymph nodes within the axilla, bilaterally. The upper abdomen demonstrates cholecystectomy changes and a right renal cyst but no acute process. There is no acute or suspicious osseous abnormality within the thorax. IMPRESSION: 1. No CT angiographic evidence of pulmonary embolism or right ventricular strain. 2. No acute aortic syndrome. 3. Stable lobulated nodule within the right upper lobe. No new or suspicious pulmonary nodule or mass. 4. No findings of pneumonia or edema. 5. No pathologic adenopathy. 6. No acute osseous abnormality. Dictated by: Dictated on workstation # [id number]
[2022-01-18 21:20] VITALS: BP 162/91
== END 2022-01-18 21:20 | disposition home or self-care (01) ==
LOC: EDUNIT# 16:36 → ER 16:38
DX: R07.9 Chest pain, unspecified (principal); K21.9 Gastro-esophageal reflux disease without esophagitis; I10 Essential (primary) hypertension; E66.01 Morbid (severe) obesity due to excess calories; Z68.43 Body mass index [BMI] 50.0-59.9, adult; Z79.82 Long term (current) use of aspirin; Z79.899 Other long term (current) drug therapy
CPT/HCPCS: 36415; 71045; 71275; 80053; 83735; 83874; 83880; 84484; 85025; 85610; 85730; 93005; 93041